=== PATIENT | male | born 1965 | race Hispanic/Latino ===

== ENCOUNTER 2019-07-19 07:48 | Inpatient (IN) | payer OTHER ==
[2019-07-19] MEDS ORDERED: NITROGLYCERIN 0.4 MG/TAB SL ONE (08:04)
[2019-07-19 08:16] LABS: Absolute Lymphocytes (CBC) 1.7 K/uL (0.7-4.9); Basophils % 0.4 % (0-1.3); Hematocrit 46.3 % (39.6-49.0); Lymphocytes % 15.4 % (15.3-44.8); MPV 8.4 fL (7.6-11.3); RBC Red Blood Cell Count 4.99 M/uL (4.33-5.43)
--- NOTE | 2019-07-19 08:26 | RAD REPORT ---
EXAM DESCRIPTION: RAD - Chest Single View - 07/19/2019 8:10 am CLINICAL HISTORY: Chest pain COMPARISON: July 2016 TECHNIQUE: AP portable chest image was obtained 0806 hours . FINDINGS: Lung volumes are low but clear. Interstitial pattern is similar or slightly less prominent than comparison. Trachea is midline. Heart and vasculature are normal. No measurable pleural effusio n and no pneumothorax. No acute bony abnormality seen. No acute aortic findings suspected. IMPRESSION: No acute cardiopulmonary process. No significant interval change.
[2019-07-19 08:29] LABS: ALT/SGPT 32 U/L (12-78); AST/SGOT 16 U/L (15-37); Albumin 3.8 g/dL (3.4-5.0); Alkaline Phosphatase 101 U/L (45-117); BUN Blood Urea Nitrogen 16 mg/dL (7-18); Bicarbonate 26 mmol/L (21-32); Bilirubin Direct < 0.1 mg/dL (0-0.2); Bilirubin Total 0.4 mg/dL (0.2-1.0); Glucose Level 91 mg/dL (74-106); Lipase 177 U/L (73-393); NT PRO-BNP 23 pg/mL (<125); Potassium 3.9 mmol/L (3.5-5.1); Protein, Total 7.7 g/dL (6.4-8.2); Sodium Level 142 mmol/L (136-145); Troponin (Emerg Dept Use Only) 0.04 ng/mL (0.0-0.045)
--- NOTE | 2019-07-19 09:13 | RAD REPORT ---
EXAM DESCRIPTION: CT - Angio Aorta For Dissection - 07/19/2019 8:52 am CLINICAL HISTORY: Hypertension, chest pain radiating to the back COMPARISON: None. TECHNIQUE: Dynamically enhanced 3 mm thick images of the chest, abdomen, and upper pelvis were obtai iker during administration of approximately 150mL Isovue 370 IV contrast. Sagittal and coronal reconst ruction images were generated using MIP and reviewed. Exam utilizes a protocol to evaluate entire cou rse of the aorta. All CT scans are performed using dose optimization technique as appropriate and may include automated exposure control or mA/KV adjustment according to patient size. FINDINGS: Aorta is normal in diameter with no dissection or other acute aortic findings. Reconstruct ion images show no significant findings. Pulmonary arteries are normal as well. No cardiomegaly, pericardial thickening or pericardial effusio n. Bilateral posterior gutter atelectasis changes are present. No acute lung parenchymal process. No ple ural thickening, pleural effusion or pneumothorax. No abnormal mediastinal or hilar mass or lymphadenopathy seen. No chest wall mass or abnormal axillar y lymphadenopathy. Celiac, SMA and renal arteries show no suspicious findings. Patient has a large inferior mesenteric a rtery that is normal in appearance. Solid abdominal viscera and bowel show no significant findings. No mass or abnormal lymphadenopathy. No free air, free fluid or inflammatory stranding. No urinary b ladder abnormality. Sigmoid diverticulosis is present without diverticulitis. Fat filled left inguinal hernia is present. There is a very small fat only umbilical hernia. No compression fracture or acute vertebral body finding. Prominent endplate spurring changes and brid ging ossification in the midthoracic spine. Advanced degenerative change involves the L5-S1 disc spac e with bony foraminal encroachment. IMPRESSION: Negative CT scan of the aorta. Atelectasis in both posterior lung bases. No acute CT chest finding seen. No acute findings in the abdomen or pelvis. Patient has prominent degenerative change in the midthoracic spine and at the L5-S1 disc level.
[2019-07-19] MEDS ORDERED: ASPIRIN 81 MG CHEWABLE TABLET ONE (09:35)
--- NOTE | 2019-07-19 09:38 | EDPHYS ---
Physician Documentation [facility] Name: Nimesh Silveira Jr Age: 53 yrs Sex: Male : 1965 Arrival Date: 07/19/2019 Time: 07:49 Bed 5 Private MD: Haris Cruz ED Physician Pepe Aleman HPI: 07/19 07:56 This 53 yrs old Male presents to ER via Unassigned with complaints of Chest rn Pain. 07:56 The patient or guardian reports chest pain that is located primarily in the substernal rn area. Onset: 1 hour(s) ago. The pain radiates to The chest pain is described as a heaviness, a pressure, squeezing. Duration: The patient or guardian reports a single episode, that is still ongoing. Modifying factors: The symptoms are alleviated by nothing. the symptoms are aggravated by nothing. Severity of pain: At its worst the pain was moderate in the emergency department the pain is unchanged. The patient has not experienced similar symptoms in the past. Reports at work, standing, began 1 hour ago with central chest tightness, radiates to back and back of neck, + nausea, not better or worse with anything, no trauma, no fever/cough/sob/abd pain. Reports had normal treadmill stress 3 years ago, doesn't take any meds. . Historical: - Allergies: 08:02 No Known Allergies; jl7 - Home Meds: 08:02 Omeprazole Oral [Active]; jl7 - PMHx: 08:02 acid reflux; jl7 - PSHx: 08:02 Appendectomy; Tonsillectomy; jl7 - Immunization history:: Adult Immunizations unknown. - Social history:: Smoking status: Patient uses tobacco products, smokes one-half pack cigarettes per day. - Family history:: not pertinent. - Ebola Screening: : No symptoms or risks identified at this time. - Hospitalizations: : No recent hospitalization is reported. ROS: 07:56 Constitutional: Negative for fever, chills, and weight loss, Eyes: Negative for injury, rn pain, redness, and discharge, Neck: Negative for injury, and swelling, Cardiovascular: Negative for palpitations, and edema, Respiratory: Negative for shortness of breath, cough, wheezing, and pleuritic chest pain, Abdomen/GI: Negative for abdominal pain, nausea, vomiting, diarrhea, and constipation, Back: Negative for injury MS/Extremity: Negative for injury and deformity, Skin: Negative for injury, rash, and discoloration, Neuro: Negative for headache, weakness, numbness, tingling, and seizure. Exam: 07:56 Constitutional: This is a well developed, well nourished patient who is awake, alert, rn and in no acute distress. Head/Face: Normocephalic, atraumatic. Eyes: Pupils equal round and reactive to light, extra-ocular motions intact. Lids and lashes normal. Conjunctiva and sclera are non-icteric and not injected. Cornea within normal limits. Periorbital areas with no swelling, redness, or edema. Neck: Trachea midline, no thyromegaly or masses palpated, and no cervical lymphadenopathy. Supple, full range of motion without nuchal rigidity, or vertebral point tenderness. No Meningismus. Cardiovascular: Regular rate and rhythm with a normal S1 and S2. No JVD. No pulse deficits. Respiratory: Lungs have equal breath sounds bilaterally, clear to auscultation. No increased work of breathing, no retractions or nasal flaring. Abdomen/GI: soft, non-tender MS/ Extremity: Pulses equal, no cyanosis. Neurovascular intact. Full, normal range of motion. Equal circumference. Neuro: Awake and alert, GCS 15, oriented to person, place, time, and situation. Cranial nerves II-XII grossly intact. Motor strength 5/5 in all extremities. Sensory grossly intact. 08:39 ECG was reviewed by the Attending Physician. rn Vital Signs: 08:02 BP 154 / 90 RA; Pulse 85; Resp 18 S; Pulse Ox 100% on R/A; Weight 80.74 kg (R); Height jl7 5 ft. 9 in. (175.26 cm) (R); Pain 8/10; 08:02 BP 152 / 91 LA; jl7 08:30 BP 127 / 83; Pulse 69; Resp 15; Pulse Ox 97% on 2 lpm NC; Pain 5/10; jl7 09:32 BP 134 / 90; Pulse 69; Resp 16 S; Temp 97.7(TE); Pulse Ox 99% on R/A; Pain 1/10; jl7 10:30 BP 130 / 79; Pulse 64; Resp 16 S; Pulse Ox 99% on R/A; jl7 08:02 Body Mass Index 26.29 (80.74 kg, 175.26 cm) [facility] MDM: 07:51 Patient medically screened. rn 09:32 Differential diagnosis: acute myocardial infarction, acute pericarditis, coronary rn artery disease cholecystitis, Cholelithiasis esophagitis, gastritis, gastroesophageal reflux disease (GERD), pericarditis, pleurisy, pneumothorax, stable angina, unstable angina. The patient was given aspirin in the Emergency Department. 09:34 Data reviewed: vital signs, nurses notes, lab test result(s), EKG, radiologic studies, rn CT scan, plain films, and as a result, I will admit patient. Counseling: I had a detailed discussion with the patient and/or guardian regarding: the historical points, exam findings, and any diagnostic results supporting the discharge/admit diagnosis, lab results, radiology results, the need for further work-up and treatment in the hospital. Response to treatment: the patient's symptoms have resolved after treatment, and as a result, I will admit patient. Admission orders: after a detailed discussion of the patient's condition and case, the admit orders are written by me. ED course: Pt with concerning story, no other etiology found, completely resolved with nitro, will admit for cardiac eval/stress test. . 09:35 ED course: Talked to patient about possible repeat troponin and outpt f/u, patient rn andrew, expressed concerns since not normal occurrence for him, patient requests to be admitted for further w/u. . 07/19 07:56 Order name: Basic Metabolic Panel; Complete Time: 08:33 rn 07/19 07:56 Order name: CBC with Diff; Complete Time: 08:33 rn 07/19 07:56 Order name: LFT's; Complete Time: 08:33 rn 07/19 07:56 Order name: NT PRO-BNP; Complete Time: 08:33 rn 07/19 07:56 Order name: Troponin (emerg Dept Use Only); Complete Time: 08:33 rn 07/19 07:56 Order name: Lipase; Complete Time: 08:33 rn 07/19 07:56 Order name: XRAY Chest (1 view); Complete Time: 08:33 rn 07/19 07:56 Order name: EKG; Complete Time: 07:58 rn 07/19 07:56 Order name: CT Aorta for Dissection; Complete Time: 09:14 rn 07/19 09:48 Order name: CONS Physician Consult EDSC 07/19 10:01 Order name: Occult Blood--Ancillary EDSC 07/19 07:56 Order name: Cardiac monitoring; Complete Time: 08:06 rn 07/19 07:56 Order name: EKG - Nurse/Tech; Complete Time: 08:14 rn 07/19 07:56 Order name: IV Saline Lock; Complete Time: 08: rn 07/19 07:56 Order name: Labs collected and sent; Complete Time: 08: rn 07/19 07:56 Order name: O2 Per Protocol; Complete Time: 08: rn 07/19 07:56 Order name: O2 Sat Monitoring; Complete Time: 08: rn EC:39 Rate is 75 beats/min. Rhythm is regular. QRS [place] is Normal. MT interval is normal. QRS rn interval is normal. QT interval is normal. No Q waves. T waves are Normal. No ST changes noted. Clinical impression: Normal ECG. Interpreted by me. Reviewed by me. Administered Medications: 08:08 Drug: Nitroglycerin 0.4 mg Route: Sublingual; jl7 08:30 Follow up: Response: No adverse reaction; Pain is decreased jl7 09:38 Drug: Aspirin Chewable Tablet 324 mg Route: PO; jl7 10:26 Follow up: Response: No adverse reaction jl7 Disposition: 07/19/19 09:35 Hospitalization ordered by Lj Brooks for Observation. Preliminary diagnosis is Chest pain, unspecified. - Bed requested for Telemetry/MedSurg (observation). - Status is Observation. jl7 - Condition is Stable. - Problem is new. - Symptoms have improved. UTI on Admission? No Signatures: Dispatcher [employer] [facility] Shiela Nunez RN Pepe Kirby MD MD rn Leal, Jahala, RN RN jl7 Corrections: (The following items were deleted from the chart) 09:37 09:35 Hospitalization Ordered by Pepe Aleman MD for Observation. Preliminary diagnosis rn is Chest pain, unspecified. Bed requested for Telemetry/MedSurg (observation). Status is Observation. Condition is Stable. Problem is new. Symptoms have improved. UTI on Admission? No. rn 10:18 09:37 07/19/2019 09:35 Hospitalization Ordered by Lj Brooks DO for Observation. dw Preliminary diagnosis is Chest pain, unspecified. Bed requested for Telemetry/MedSurg (observation). Status is Observation. Condition is Stable. Problem is new. Symptoms have improved. UTI on Admission? No. rn 10:54 10:18 07/19/2019 09:35 Hospitalization Ordered by Lj Brooks DO for Observation. jl7 Preliminary diagnosis is Chest pain, unspecified. Bed requested for Telemetry/MedSurg (observation). Status is Observation. Condition is Stable. Problem is new. Symptoms have improved. UTI on Admission? No. dw
--- NOTE | 2019-07-19 09:38 | ER ---
Nurse's Notes [facility] Name: Nimesh Silveira Jr Age: 53 yrs Sex: Male : 1965 Arrival Date: 07/19/2019 Time: 07:49 Bed 5 Private MD: Haris Cruz Diagnosis: Chest pain, unspecified Presentation: 07/19 08:00 Presenting complaint: Patient states: Chest pain started 1 hour ago, radiates to back jl7 and posterior neck. Transition of care: patient was not received from another setting of care. Onset of symptoms was July 19, 2019 at 07:00. Risk Assessment: Do you want to hurt yourself or someone else? Patient reports no desire to harm self or others. Initial Sepsis Screen: Does the patient meet any 2 criteria? No. Patient's initial sepsis screen is negative. Does the patient have a suspected source of infection? No. Patient's initial sepsis screen is negative. Care prior to arrival: None. 08:00 Method Of Arrival: Ambulatory jl7 08:00 Acuity: FRANCIA 2 jl7 Triage Assessment: 08:00 General: Appears in no apparent distress. uncomfortable, Behavior is calm, cooperative, jl7 appropriate for age. Pain: Complains of pain in chest Pain radiates to base of the skull and back Pain currently is 8 out of 10 on a pain scale. at worst was 12 out of 10 on a pain scale. Quality of pain is described as pressure, Pain began 1 hour ago. Is intermittent. EENT: No signs and/or symptoms were reported regarding the EENT system. Neuro: Level of Consciousness is awake, alert, obeys commands, Oriented to person, place, time, situation. Cardiovascular: Heart tones S1 S2 present Patient's skin is warm and dry. Chest pain is described as Pain is 8 out of 10 on a pain scale. quality is pressure, is located in chest wall radiates back neck began 1 hour prior to arrival episodes are intermittent. Respiratory: Airway is patent Respiratory effort is even, unlabored, Respiratory pattern is regular, symmetrical, Breath sounds are clear bilaterally. GI: No signs and/or symptoms were reported involving the gastrointestinal system. : No signs and/or symptoms were reported regarding the genitourinary system. Derm: Skin is pink, warm \T\ dry. Musculoskeletal: No signs and/or symptoms reported regarding the musculoskeletal system. Historical: - Allergies: 08:02 No Known Allergies; jl7 - Home Meds: 08:02 Omeprazole Oral [Active]; jl7 - PMHx: 08:02 acid reflux; jl7 - PSHx: 08:02 Appendectomy; Tonsillectomy; jl7 - Immunization history:: Adult Immunizations unknown. - Social history:: Smoking status: Patient uses tobacco products, smokes one-half pack cigarettes per day. - Family history:: not pertinent. - Ebola Screening: : No symptoms or risks identified at this time. - Hospitalizations: : No recent hospitalization is reported. Screenin:12 Abuse screen: Denies threats or abuse. Denies injuries from another. Nutritional jl7 screening: No deficits noted. Tuberculosis screening: No symptoms or risk factors identified. Fall Risk IV access (20 points). Total Redman Fall Scale indicates No Risk (0-24 pts). Assessment: 08:00 General: See triage assessment. jl7 08:30 Reassessment: Patient states feeling better. Patient states symptoms have improved. jl7 Pain: Pain currently is 5 out of 10 on a pain scale. 09:30 Reassessment: Patient appears in no apparent distress at this time. No changes from jl7 previously documented assessment. Patient and/or family updated on plan of care and expected duration. Pain level reassessed. Patient is alert, oriented x 3, equal unlabored respirations, skin warm/dry/pink. 10:30 Reassessment: Patient appears in no apparent distress at this time. Patient and/or jl7 family updated on plan of care and expected duration. Pain level reassessed. Patient is alert, oriented x 3, equal unlabored respirations, skin warm/dry/pink. Vital Signs: 08:02 BP 154 / 90 RA; Pulse 85; Resp 18 S; Pulse Ox 100% on R/A; Weight 80.74 kg (R); Height jl7 5 ft. 9 in. (175.26 cm) (R); Pain 8/10; 08:02 BP 152 / 91 LA; jl7 08:30 BP 127 / 83; Pulse 69; Resp 15; Pulse Ox 97% on 2 lpm NC; Pain 5/10; jl7 09:32 BP 134 / 90; Pulse 69; Resp 16 S; Temp 97.7(TE); Pulse Ox 99% on R/A; Pain 1/10; jl7 10:30 BP 130 / 79; Pulse 64; Resp 16 S; Pulse Ox 99% on R/A; jl7 08:02 Body Mass Index 26.29 (80.74 kg, 175.26 cm) 7 ED Course: 07:49 Patient arrived in ED. mr 07:49 Haris Cruz DO is Private Physician. mr 07:49 Mitzi Kelly RN is Primary Nurse. jl7 07:51 Pepe Aleman MD is Attending Physician. rn 08:01 Triage completed. jl7 08:02 Arm band placed on right wrist. jl7 08:04 Initial lab(s) drawn, by ri, sent to lab. Inserted saline lock: 20 gauge in left mh5 forearm, using aseptic technique. Blood collected. 08:05 Patient has correct armband on for positive identification. Placed in gown. Bed in low mh5 position. Call light in reach. Side rails up X 1. manager monitoring on. Pulse ox on. NIBP on. 08:06 Basic Metabolic Panel Sent. 5 08:06 CBC with Diff Sent. mh5 08:06 LFT's Sent. mh5 08:06 NT PRO-BNP Sent. 5 08:06 Troponin (emerg Dept Use Only) Sent. 5 08:12 Oxygen administration via nasal cannula \T\ 2L/min. jl7 08:13 XRAY Chest (1 view) In Process Unspecified. EDMS 08:53 CT Aorta for Dissection In Process Unspecified. EDMS 09:35 Pepe Aleman MD is Hospitalizing Provider. rn 09:37 Lj Brooks DO is Hospitalizing Provider. rn 10:41 No provider procedures requiring assistance completed. Patient admitted, IV remains in [facility] place. intact, No redness/swelling at site. Administered Medications: 08:08 Drug: Nitroglycerin 0.4 mg Route: Sublingual; jl7 08:30 Follow up: Response: No adverse reaction; Pain is decreased jl7 09:38 Drug: Aspirin Chewable Tablet 324 mg Route: PO; jl7 10:26 Follow up: Response: No adverse reaction [facility] Outcome: 09:35 Decision to Hospitalize by Provider. rn 10:41 Admitted to Tele accompanied by tech, family with patient, via wheelchair, room 209, [facility] with chart, Report called to Deborah 10:41 Condition: stable 10:41 Discharge instructions given to patient, family, Instructed on the need for admit, Demonstrated understanding of instructions. 10:54 Patient left the ED. jl7 Signatures: Dispatcher [employer] [facility] Zhu Terra AshPepe MD MD rn Martinez, Maria [facility] Mitzi Kelly RN RN jl7 Corrections: (The following items were deleted from the chart) 08:09 08:02 BP 154 / 90; Pulse 85bpm; Resp 18bpm; Spontaneous; Pulse Ox 100% RA; 80.74 kg jl7 Reported; Height 5 ft. 9 in. Reported; BMI: 26.2; Pain 8/10; jl7
--- NOTE | 2019-07-19 09:59 | EKG ---
Test Date: 2019-07-19 Test Time: 07:44:57 Director Mobile: JUANPABLO MEASUREMENT RESULTS: Intervals: Rate: 75 ID: [id number] QRSD: 100 QT: 358 QTc: 399 [place]: P: 49 ID: [id number] QRS: -26 T: 50 INTERPRETIVE STATEMENTS: Normal sinus rhythm with sinus arrhythmia Normal ECG Compared to ECG 10/15/2016 22:03:29 Incomplete right bundle-branch block no longer present Electronically Signed On 07-19-19 09:58:01 CDT by Arturo Mccann
--- NOTE | 2019-07-19 10:28 | P.HP ---
Certification for Inpatient Patient admitted to: Observation With expected LOS: <2 Midnights Patient will require the following post-hospital care: None Practitioner: I am a practitioner with admitting privileges, knowledge of patient current condition, hospital course, and medical plan of care. Services: Services provided to patient in accordance with Admission requirements found in Title 42 Section 412.3 of the Code of Federal Regulations <Jackie Riverashua - Last Filed: 07/19/19 10:23> Patient admitted to: Inpatient With expected LOS: >2 Midnights Patient will require the following post-hospital care: None Practitioner: I am a practitioner with admitting privileges, knowledge of patient current condition, hospital course, and medical plan of care. Services: Services provided to patient in accordance with Admission requirements found in Title 42 Section 412.3 of the Code of Federal Regulations <Lj Brooks - Last Filed: 07/19/19 17:23> Patient History Date of Service: 07/19/19 Primary Care Provider: Dr. Cruz Reason for admission: Chest Pain History of Present Illness: This is a 53 y/o M that present to ED for sudden onset chest pain that started at 05:45 this AM. Stated that the chest pain was substernal and pressure in nature with radiation to the left neck and back of shoulder. Pain upon ED arrival was 10 out of 10. Nitroglycerin and ASA were given in ED with almost complete relief of pain. First set of cardiac enzymes and ECG without acute finding. Patient otherwise hemodynamically stable. I was called to admit patient for chest pain r/o. Patient has significant family history and is a 1/2 ppd smoker. Other notable history is GERD but does not have diabetes or Hypercholesterolemia to his knowledge. Home medications list reviewed: Yes - Past Medical/Surgical History Has patient received pneumonia vaccine in the past: No Diabetic: No -: Tonsilitis -: Heartburn -: Tonsilectomy - Social History Alcohol use: No CD- Drugs: No Caffeine use: Yes <Gilbert Rivera - Last Filed: 07/19/19 10:23> Date of Service: 07/19/19 Primary Care Provider: Dr. Haris Cruz History of Present Illness: Positive family history includes mother with hypertension, father with previous HI and heart disease. Patient is a smoker. Home medications list reviewed: Yes - Past Medical/Surgical History Diabetic: No -: GERD -: Appendectomy Psychosocial/ Personal History: Patient is - Family History Father -: Heart disease Mother -: Heart disease, Hypertension - Social History Smoking Status: Heavy Tobacco smoker (>10 cigarettes/day) Counseled patient to stop smoking for: less than 10 minutes Smoking therapy provided: Yes Patient receptive to therapy: Yes Alcohol use: No CD- Drugs: No Caffeine use: Yes Place of Residence: Home <Lj Brooks - Last Filed: 07/19/19 17:23> Allergies No Known Allergies Allergy (Verified 07/19/19 10:55) Home Medications: Omeprazole 20 mg PO DAILY 07/19/19 Review of Systems General: Unremarkable Eyes: Unremarkable ENT: Unremarkable Respiratory: Unremarkable Cardiovascular: Chest Pain Gastrointestinal: Unremarkable Musculoskeletal: Unremarkable Integumentary: Unremarkable Neurological: Unremarkable Lymphatics: Unremarkable <Jackie Riverashua - Last Filed: 07/19/19 10:23> General: Unremarkable Eyes: Unremarkable ENT: Unremarkable Respiratory: Unremarkable Cardiovascular: Chest Pain, As per HPI Gastrointestinal: Unremarkable Genitourinary: Unremarkable Musculoskeletal: Unremarkable Integumentary: Unremarkable Neurological: Unremarkable Lymphatics: Unremarkable <Lj Brooks - Last Filed: 07/19/19 17:23> Physical Examination - Vital Signs Temperature: 98.0 F Blood Pressure: 134/80 Pulse: 65 Respirations: 14 Pulse Ox (%): 99 - Physical Exam General: Alert HEENT: Atraumatic Neck: Supple, 2+ carotid pulse no bruit, No LAD, Without JVD or thyroid abnormality Respiratory: Clear to auscultation bilaterally, Normal air movement Cardiovascular: No edema, Normal pulses, Regular rate/rhythm, Normal S1 S2, No gallops, No rubs, No murmurs Capillary refill: <2 Seconds Gastrointestinal: Normal bowel sounds, Soft and benign, Non-distended, No ascites, No tenderness, No masses, No rebound, No guarding Musculoskeletal: No clubbing, No swelling, No contractures, No erythema, No tenderness, No warmth Integumentary: No rashes, No breakdown, No significant lesion, No tenderness/ swelling, No erythema, No warmth, No cyanosis Neurological: Normal gait, Normal speech, Normal strength at 5/5 x4 extr, Normal tone, Sensation intact, Cranial nerves 3-12 intact, Normal reflexes 2+, Normal affect Lymphatics: No axilla or inguinal lymphadenopathy - Studies Laboratory Data (last 24 hrs) 07/19/19 08:00: WBC 11.1 H, Hgb 15.6, Hct 46.3, Plt Count 250 07/19/19 08:00: Sodium 142, Potassium 3.9, BUN 16, Creatinine 0.88, Glucose 91, Total Bilirubin 0.4, AST 16, ALT 32, Alkaline Phosphatase 101, Lipase 177 <Gilbert Rivera - Last Filed: 07/19/19 10:23> - Physical Exam General: Alert, In no apparent distress, Oriented x3, Cooperative HEENT: Atraumatic, Normocephalic, Mucous membr. moist/pink Neck: Supple Respiratory: Clear to auscultation bilaterally, Normal air movement Cardiovascular: Normal pulses, Regular rate/rhythm Gastrointestinal: Normal bowel sounds, Soft and benign, Non-distended, No ascites, No tenderness, No masses, No rebound, No guarding Musculoskeletal: No contractures, No erythema, No tenderness, No warmth Integumentary: No tenderness/swelling, No erythema, No warmth, No cyanosis Neurological: Normal speech, Normal strength at 5/5 x4 extr, Normal tone, Normal affect - Studies Laboratory Data (last 24 hrs) 07/19/19 08:00: WBC 11.1 H, Hgb 15.6, Hct 46.3, Plt Count 250 07/19/19 08:00: Sodium 142, Potassium 3.9, BUN 16, Creatinine 0.88, Glucose 91, Total Bilirubin 0.4, AST 16, ALT 32, Alkaline Phosphatase 101, Lipase 177 <Lj Brooks - Last Filed: 07/19/19 17:23> Assessment and Plan - Problems (Diagnosis) (1) Chest pain Current Visit: Yes Status: Acute Qualifiers: Chest pain type: unspecified Qualified Code(s): R07.9 - Chest pain, unspecified (2) GERD (gastroesophageal reflux disease) Current Visit: Yes Status: Chronic Qualifiers: Esophagitis presence: without esophagitis Qualified Code(s): K21.9 - Gastro -esophageal reflux disease without esophagitis - Plan Patient will be admitted for Observation Patient will have serial Troponin x2 drawn Cholesterol and A1C will be assessed Cardiology Consulted and will see patient. Will decide if further intervention is necessary Discharge Plan: Home Plan to discharge in: 24 Hours - Advance Directives Does patient have a Living Will: No Does patient have a Durable POA for Healthcare: No - Code Status/Comfort Care Code Status Assessed: Yes Code Status: Full Code Critical Care: No Time Spent Managing Pts Care (In Minutes): 30 <Gilbert Rivera - Last Filed: 07/19/19 10:23> - Plan Impression: Chest pain now with elevated troponin likely non ST wave HI suspect underlying CAD Elevated blood pressure suspect hypertension GERD Tobacco abuse Plan: Chest pain now with elevated troponin likely non ST wave HI suspect underlying CAD: Patient admitted for chest pain. 2nd set of troponin was elevated. Suspect non ST wave HI. Will keep the patient NPO after midnight as patient will likely require heart catheterization to further evaluate. Will start Lovenox at 1 milligram/kilogram subcu twice daily. Will continue with aspirin, Lipitor, and metoprolol. Cardiology has been consulted. Await further recommendations. Echocardiogram to be obtained. Will reassess tomorrow. Elevated blood pressure suspect hypertension: Blood pressures initially elevated. Will continue with metoprolol. Will monitor and adjust medication appropriately. GERD: Continue with Protonix. Tobacco abuse: Will provide nicotine patch. Tobacco cessation education provided. Discharge Plan: Home Plan to discharge in: 24 Hours (to 48 hours) - Code Status/Comfort Care Code Status Assessed: Yes (Patient is full code) Time Spent Managing Pts Care (In Minutes): 55 <Lj Brooks - Last Filed: 07/19/19 17:23>
[2019-07-19] MEDS ORDERED: ACETAMINOPHEN 500 MG TAB PO PRN (10:58)
[2019-07-19] MEDS ORDERED: NITROGLYCERIN 0.4 MG/TAB SL PRN (10:58)
[2019-07-19] MEDS ORDERED: ONDANSETRON 4 MG/2 ML VIAL IV PRN (10:58)
[2019-07-19] MEDS ORDERED: MORPHINE 2 MG/ML SYR IV PRN (10:58)
[2019-07-19 11:14] VITALS: BMI 26.2
--- NOTE | 2019-07-19 13:46 | CON ---
This is a 53-year-old man. History Of Present Illness: Mr. Silveira had chest pain today, it lasted for about an hour. It starte d about an hour after he had awakened and it occurred while he was at work. The health facilities at work transferred him to the ER. Since being here, EKGs and enzymes were normal. His chest pain has resolved. The pain is left pectoral. Since being here, he has had an EKG that is normal. Plain ch est x-ray that is normal. CT angiogram of the chest showing no evidence of dissection or pulmonary e mbolus. He has prominent degenerative changes in the spine and at the L5-S1 disk level. No compress ion fractures. His electrocardiogram shows everything is normal, even there was sinus arrhythmia. Laboratory Data: Reveals a troponin of 0.04. N-terminal proBNP is 23, blood sugar 91. Physical Examination: General: He is alert, oriented, pleasant, not in distress, not obese, rather abrupt in his answers. He seemed to be unhappy in some way that he is in the emergency room. He was cooperative. Lungs: Clear. No carotid bruit. Abdomen: No evidence of abdominal aortic aneurysm. Cardiac: Exam normal. Extremities: Normal pulses. No cyanosis, clubbing, or edema. Impression: This is probably noncardiac pain. If his serial enzymes are normal, I believe he could be discharged and do an outpatient stress test. He had a stress test roughly a year ago that was nor mal. He is a 10 cigarettes per day smoker and he should be given the tobacco cessation program and encoura ged to quit. FIDENCIO/VIPIN Voice ID: [id number] Report ID: [id number]
[2019-07-19] MEDS: METOPROLOL TAR 25 MG TAB PO SCH (17:47)
[2019-07-19] MEDS: ENOXAPARIN 80 MG/0.8 ML SQ SCH (20:01)
[2019-07-19] MEDS ORDERED: ATORVASTATIN 40 MG TAB PO SCH (21:00)
[2019-07-19 21:24] LABS: Barbiturates NEGATIVE (NEGATIVE); Benzodiazepines NEGATIVE (NEGATIVE); Cocaine NEGATIVE (NEGATIVE); METHAMPHETAM NEGATIVE (NEGATIVE); Methadone NEGATIVE (NEGATIVE); Opiates NEGATIVE (NEGATIVE); Phencyclidine NEGATIVE (NEGATIVE); THC Cannibis NEGATIVE (NEGATIVE)
[2019-07-20] MEDS: PANTOPRAZOLE 40MG TABLET PO SCH (06:09)
[2019-07-20] MEDS: METOPROLOL TAR 25 MG TAB PO SCH ×2 (06:09→17:58)
[2019-07-20 06:12] LABS: Absolute Lymphocytes (CBC) 2.7 K/uL (0.7-4.9); Basophils % 0.6 % (0-1.3); Hematocrit 45.3 % (39.6-49.0); Lymphocytes % 25.6 % (15.3-44.8); MPV 8.3 fL (7.6-11.3); RBC Red Blood Cell Count 4.85 M/uL (4.33-5.43)
[2019-07-20 06:31] LABS: Potassium 4.3 mmol/L (3.5-5.1)
[2019-07-20] MEDS: ENOXAPARIN 80 MG/0.8 ML SQ SCH (08:39)
[2019-07-20] MEDS: NICOTINE 21 MG/PAT TD SCH (08:40)
[2019-07-20] MEDS ORDERED: ASPIRIN EC 81 MG TAB PO SCH (09:00)
[2019-07-20] MEDS ORDERED: HEPA 1000U/500MLS 1,000 UNIT/500 ML BAG IV ONE (09:03)
[2019-07-20] MEDS ORDERED: NA CHLORIDE 0.9% 50 ML ONE (09:41)
[2019-07-20] MEDS ORDERED: MIDAZOLAM HCL 2 MG/2 ML INJ ONE (09:41)
[2019-07-20] MEDS ORDERED: FENTANYL CITR 100 MCG/2 ML ONE (09:41)
[2019-07-20] MEDS ORDERED: ATROPINE SULF 1 MG/10 ML SYR IV ONE (09:41)
[2019-07-20] MEDS ORDERED: NA CHLORIDE 0.9% 500 ML ONE (09:41)
[2019-07-20] MEDS ORDERED: PRASUGREL (EFFIENT) 10 MG TAB ONE (11:05)
--- NOTE | 2019-07-20 11:50 | OP ---
Date of Procedure: 07/20/2019 Surgeon: Rhys Nixon MD Sales Agent [employer] Service: Briseida Gordon. Procedure: Left heart catheterization, selective coronary arteriogram, primary stent of the proximal mid and distal LAD. Indications: Zvi-[id number]-[id number] myocardial infarction. Description Of Procedure: Mr. Silveira is 53. No previous past medical history. He came in with ches t pain, atypical, but had positive troponin. He was brought to the manager cath lab as an inpatient today. Prepped and draped in the routine sterile fashion. A 6-St Helenian sheath was used to cannulate the right common femoral artery. Angio-Seal was used to close the case. 6-St Helenian Gil catheters, right an d left, were used to cannulate the RCA and the left main respectively. The RCA was normal. Circumfl ex system had some diffuse plaquing. The LAD had a 70% proximal, 80% mid, and about a 90% distal katie nosis. An XB 3.5 with side-hole guide was used to cannulate the left main. A Opal wire 0.14 extra length was used to cross the lesion successfully. I used 3 stents for the distal. We used a 2.5 x 12 for the mid. We used a 2.5 x 12 Synergy, and for the proximal, I used a 3.0 x 16 Synergy stent at 14 atmospheres each, 0% residual, excellent results. Patient tolerated the procedure well. There w ere no complications. Blood Loss: 5 cc. Anesthesia: Total conscious sedation was 45 minutes. Final Diagnoses: Coronary artery disease status post acute emu-[id number] myocardial infarction, s tatus post successful primary stenting of the proximal mid and distal LAD. Patient received Angiomax , Effient, and aspirin during the procedure. He will stay overnight. Tomorrow morning, he will go home on aspirin, Lipitor, Plavix, and beta federico. NB/MODL Voice ID: [id number] Report ID: [id number]
--- NOTE | 2019-07-20 12:20 | EKG ---
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
[2019-07-20] MEDS ORDERED: ZOLPIDEM TARTRATE 5 MG TABLET PO PRN (12:48)
[2019-07-20] MEDS ORDERED: MORPHINE 4 MG/ML SYR IV PRN (12:50)
[2019-07-20] MEDS ORDERED: ACETAMINOPHEN 325 MG TABLET PO PRN (13:00)
[2019-07-20] MEDS: NA CHLORIDE 0.9% 1,000 ML IV SCH (13:38)
--- NOTE | 2019-07-20 15:24 | P.PN ---
Subjective Date of Service: 07/20/19 Primary Care Provider: Dr. Haris Cruz Chief Complaint: Chest Pain Subjective: Other (Patient feeling better today. Heart catheterization performed.) Physical Examination - Vital Signs Temperature: 97 F Blood Pressure: 119/63 Pulse: 69 Respirations: 18 Pulse Ox (%): 98 - Physical Exam General: Alert, In no apparent distress, Oriented x3, Cooperative HEENT: Atraumatic Neck: Supple Respiratory: Clear to auscultation bilaterally, Normal air movement Cardiovascular: Normal pulses, Regular rate/rhythm Gastrointestinal: Normal bowel sounds, Soft and benign, Non-distended, No masses , No rebound, No guarding - Studies Medications List Reviewed: Yes Assessment & Plan Discharge Plan: Home Plan to discharge in: 24 Hours Physician Review Additional Text: Impression: Chest pain secondary to non ST wave ID status post heart catheterization showing CAD with primary stenting of proximal mid and distal LAD Hypertension Hyperlipidemia GERD Tobacco abuse Plan: Chest pain secondary to non ST wave ID status post heart catheterization showing CAD with primary stenting of proximal, mid, and distal LAD: Case discussed with cardiology. Patient had significant CAD. 70% stenosis to the proximal LAD, 80% to the mid LAD and 90% to the distal LAD. Patient had successful primary stenting of the proximal, mid and distal LAD. Patient stable this time. Will continue with aspirin, Lipitor, Plavix and beta federico therapy. Will continue monitor the patient closely. Anticipate discharge tomorrow with clinical improvement and cleared by cardiology. Patient will need medical therapy and follow up with Cardiology closely. Hypertension: Continue with metoprolol. Hyperlipidemia: Continue with Lipitor 80 mg daily. GERD: Continue with medication. Tobacco abuse: Continue to address lifestyle modification education. Will provide nicotine patch. Encourage cessation due to CAD findings. Time Spent Managing Pts Care (In Minutes): 55
[2019-07-20] MEDS ORDERED: ATORVASTATIN 80 MG TAB PO SCH (21:00)
[2019-07-21] MEDS: NA CHLORIDE 0.9% 1,000 ML IV SCH (03:24)
[2019-07-21] MEDS: METOPROLOL TAR 25 MG TAB PO SCH (05:25)
[2019-07-21] MEDS: PANTOPRAZOLE 40MG TABLET PO SCH (05:26)
[2019-07-21 06:05] LABS: Absolute Lymphocytes (CBC) 2.4 K/uL (0.7-4.9); Basophils % 0.3 % (0-1.3); Lymphocytes % 20.1 % (15.3-44.8); MPV 7.9 fL (7.6-11.3); RBC Red Blood Cell Count 4.74 M/uL (4.33-5.43)
[2019-07-21 06:22] LABS: BUN Blood Urea Nitrogen 18 mg/dL (7-18); Bicarbonate 28 mmol/L (21-32); Glucose Level 100 mg/dL (74-106); HDL Cholesterol 28 mg/dL (40-60); LDL Cholesterol, Calculated 36 (<130); Potassium 4.4 mmol/L (3.5-5.1); Sodium Level 141 mmol/L (136-145)
[2019-07-21] MEDS: NICOTINE 21 MG/PAT TD SCH (08:04)
--- NOTE | 2019-07-21 08:30 | P.DS ---
Admission Date: 07/21/19 Discharge Date: 07/21/19 Primary Care Provider: Dr. Haris Cruz Disposition: ROUTINE DISCHARGE Discharge Condition: GOOD Reason for Admission: Chest Pain Consultations: Cardiology-Dr. Nixon Procedures: CT scan: FINDINGS: Aorta is normal in diameter with no dissection or other acute aortic findings. Reconstruction images show no significant findings. Pulmonary arteries are normal as well. No cardiomegaly, pericardial thickening or pericardial effusion. Bilateral posterior gutter atelectasis changes are present. No acute lung parenchymal process. No pleural thickening, pleural effusion or pneumothorax. No abnormal mediastinal or hilar mass or lymphadenopathy seen. No chest wall mass or abnormal axillary lymphadenopathy. Celiac, SMA and renal arteries show no suspicious findings. Patient has a large inferior mesenteric artery that is normal in appearance. Solid abdominal viscera and bowel show no significant findings. No mass or abnormal lymphadenopathy. No free air, free fluid or inflammatory stranding. No urinary bladder abnormality. Sigmoid diverticulosis is present without diverticulitis. Fat filled left inguinal hernia is present. There is a very small fat only umbilical hernia. No compression fracture or acute vertebral body finding. Prominent endplate spurring changes and bridging ossification in the midthoracic spine. Advanced degenerative change involves the L5-S1 disc space with bony foraminal encroachment. IMPRESSION: Negative CT scan of the aorta. Atelectasis in both posterior lung bases. No acute CT chest finding seen. No acute findings in the abdomen or pelvis. Patient has prominent degenerative change in the midthoracic spine and at the L5 -S1 disc level Heart Catheterization: Date of Procedure: 07/20/2019 Surgeon: Rhys Nixon MD Procedure: Left heart catheterization, selective coronary arteriogram, primary stent of the proximal mid and distal LAD. Indications: [id number]-[id number] myocardial infarction. Description Of Procedure: The RCA was normal. Circumflex system had some diffuse plaquing. The LAD had a 70% proximal, 80% mid, and about a 90% distal stenosis. 3 stents used for the proximal, mid and distal. Patient tolerated the procedure well. There were no complications. Blood Loss: 5 cc. Anesthesia: Total conscious sedation was 45 minutes. Final Diagnoses: Coronary artery disease status post acute zlt-RK-[id number] myocardial infarction, status post successful primary stenting of the proximal mid and distal LAD. Medical Problem List: Chest pain secondary to non ST wave IA status post heart catheterization showing CAD with primary stenting of proximal, mid, and distal LAD Hypertension Hyperlipidemia GERD Tobacco abuse Brief History of Present Illness: Positive family history includes mother with hypertension, father with previous IA and heart disease. Patient is a smoker. Hospital Course: Patient presented with chest pain. Patient was admitted for further evaluation. Patient eventually had abnormal troponins indicating non ST wave IA. Patient was seen and evaluated by Cardiology. Cardiology intervention was required. Patient had heart catheterization showing LAD stenosis with 70% proximal, 80% mid and 90% distal. Patient had successful stent placement of proximal, mid and distal LAD. Patient tolerated procedure well. Patient placed on medication. He was not taking any medication prior to coming in. At discharge he is without any significant chest pain shortness of breath. At discharge patient will continue with aspirin 81 mg daily, Lipitor 80 mg daily, Plavix 75 mg daily, and metoprolol 25 mg 1 pill twice daily. Recommendation is for the patient to follow up with cardiology in 1-2 weeks to follow up this hospitalization and to continue his care. Education on CAD, hypertension and hyperlipidemia will be provided. Tobacco cessation recommended. Patient now with hypertension. Blood pressure improved with medication. At discharge he will continue with metoprolol 25 mg 1 pill twice daily. Recommendation is to maintain blood pressures less 150/80. Further adjustment can be done by his PCP or cardiology. Patient with hyperlipidemia. Patient started on medication. At discharge he will continue with Lipitor 80 mg daily and fish oil 2 g twice daily. Recommend to recheck fasting lipid panel in 2-4 weeks to monitor his progress. Further adjustment may be required. Patient with underlying GERD. Patient may continue with his medication- Prilosec 20 mg daily. Patient with tobacco abuse. Tobacco cessation addressed in detail. Education provided. Patient will be given nicotine patch to be used to help with cessation. Vital Signs/Physical Exam: Temp Pulse Resp BP Pulse Ox 97.0 F 76 14 140/82 97 07/21/19 04:00 07/21/19 05:25 07/21/19 04:00 07/21/19 05:25 07/21/19 04:00 General: Alert, In no apparent distress, Oriented x3, Cooperative HEENT: Atraumatic Neck: Supple Respiratory: Clear to auscultation bilaterally, Normal air movement Cardiovascular: Normal pulses, Regular rate/rhythm Gastrointestinal: Normal bowel sounds, Soft and benign, Non-distended, No tenderness, No masses, No rebound, No guarding Musculoskeletal: No erythema, No tenderness, No warmth Integumentary: No tenderness/swelling, No erythema, No warmth, No cyanosis Neurological: Normal speech, Normal strength at 5/5 x4 extr, Normal tone, Normal affect Laboratory Data at Discharge: WBC 11.8 K/uL (4.3-10.9) H 07/21/19 05:43 Hgb 15.2 g/dL (13.6-17.9) 07/21/19 05:43 Hct 44.0 % (39.6-49.0) 07/21/19 05:43 Plt Count 249 K/uL (152-406) 07/21/19 05:43 Sodium 141 mmol/L (136-145) 07/21/19 05:43 Potassium 4.4 mmol/L (3.5-5.1) 07/21/19 05:43 BUN 18 mg/dL (7-18) 07/21/19 05:43 Creatinine 0.85 mg/dL (0.55-1.3) 07/21/19 05:43 Glucose 100 mg/dL (74-106) 07/21/19 05:43 Total Bilirubin 0.4 mg/dL (0.2-1.0) 07/19/19 08:00 AST 16 U/L (15-37) 07/19/19 08:00 ALT 32 U/L (12-78) 07/19/19 08:00 Alkaline Phosphatase 101 U/L (45-117) 07/19/19 08:00 Troponin I 1.51 ng/mL (0.0-0.045) H* 07/20/19 05:35 Triglycerides 400 mg/dL (<150) H 07/21/19 05:43 Cholesterol 144 mg/dL (<200) 07/21/19 05:43 HDL Cholesterol 28 mg/dL (40-60) L 07/21/19 05:43 Cholesterol/HDL Ratio 5.14 07/21/19 05:43 Lipase 177 U/L (73-393) 07/19/19 08:00 Home Medications: Omeprazole 20 mg PO DAILY 07/19/19 Aspirin Chewable [Aspirin Chewable*] 81 mg PO DAILY #90 tab.chew 07/21/19 Atorvastatin Calcium [Lipitor] 80 mg PO BEDTIME #30 tab 07/21/19 Clopidogrel Bisulfate [Plavix*] 75 mg PO DAILY #30 tablet 07/21/19 Docosahexanoic AC/Epa [Fish Oil 1,000 MG CAP] 2,000 mg PO BID #120 cap 07/21/19 Metoprolol Tartrate [Lopressor*] 25 mg PO BID #60 tab 07/21/19 Nicotine [Nicoderm*] 21 mg TD DAILY #30 patch.td24 07/21/19 New Medications: Aspirin Chewable [Aspirin Chewable*] 81 mg PO DAILY #90 tab.chew Atorvastatin Calcium [Lipitor] 80 mg PO BEDTIME #30 tab Clopidogrel Bisulfate [Plavix*] 75 mg PO DAILY #30 tablet Docosahexanoic AC/Epa [Fish Oil 1,000 MG CAP] 2,000 mg PO BID #120 cap Metoprolol Tartrate [Lopressor*] 25 mg PO BID #60 tab Nicotine [Nicoderm*] 21 mg TD DAILY #30 patch.td24 Patient Discharge Instructions: 1. Recommend follow up with PCP in 1-2 weeks to follow up this hospitalization. 2. Patient presented with chest pain. Patient was admitted for further evaluation. Patient eventually had abnormal troponins indicating non ST wave IA. Patient was seen and evaluated by Cardiology. Cardiology intervention was required. Patient had heart catheterization showing LAD stenosis with 70% proximal, 80% mid and 90% distal. Patient had successful stent placement of proximal, mid and distal LAD. Patient tolerated procedure well. Patient placed on medication. He was not taking any medication prior to coming in. At discharge he is without any significant chest pain shortness of breath. At discharge patient will continue with aspirin 81 mg daily, Lipitor 80 mg daily, Plavix 75 mg daily, and metoprolol 25 mg 1 pill twice daily. Recommendation is for the patient to follow up with cardiology in 1-2 weeks to follow up this hospitalization and to continue his care. Education on CAD, hypertension and hyperlipidemia will be provided. Tobacco cessation recommended. 3. Patient now with hypertension. Blood pressure improved with medication. At discharge he will continue with metoprolol 25 mg 1 pill twice daily. Recommendation is to maintain blood pressures less 150/80. Further adjustment can be done by his PCP or cardiology. 4. Patient with hyperlipidemia. Patient started on medication. At discharge he will continue with Lipitor 80 mg daily and fish oil 2 g twice daily. Recommend to recheck fasting lipid panel in 2-4 weeks to monitor his progress. Further adjustment may be required. 5. Patient with underlying GERD. Patient may continue with his medication-Prilosec 20 mg daily. 6. Patient with tobacco abuse. Tobacco cessation addressed in detail. Education provided. Patient will be given nicotine patch to be used to help with cessation. Diet: AHA Activity: Ad jacquelyn Followup: Rhys Nixon MD [ACTIVE - CAN ADMIT] - (Follow up in 2 weeks) Time spent managing pt's care (in minutes): 55
[2019-07-21 08:42] VITALS: O2SAT 94
[2019-07-21] MEDS ORDERED: CLOPIDOGREL 75 MG TABLET PO SCH (09:00)
[2019-07-21] MEDS ORDERED: ASPIRIN 81 MG CHEWABLE TABLET PO SCH (09:00)
--- NOTE | 2019-07-21 09:39 | EKG ---
Test Date: 2019-07-21 Test Time: 07:43:08 Flat Sheet Maker: JANY MEASUREMENT RESULTS: Intervals: Rate: 65 HI: 186 QRSD: 100 QT: 358 QTc: 372 Startex: P: 47 HI: 186 QRS: -29 T: 55 INTERPRETIVE STATEMENTS: Normal sinus rhythm Possible Anterior infarct, age undetermined Abnormal ECG Compared to ECG 07/20/2019 07:28:38 Myocardial infarct finding now present ST (T wave) deviation no longer present Electronically Signed On 07-21-19 09:38:31 CDT by Arturo Mccann
[2019-07-21 10:16] VITALS: BP 111/72; TEMP 98.4
--- NOTE | 2019-07-22 23:07 | PN ---
Date of Progress Note: 07/21/2019 Mr. Silveira was admitted on 07/19/2019 with chest pain, positive troponin. On 07/20/2019, he underwen t stent of his distal LAD, middle LAD, and proximal LAD successfully with 0% residual. Overnight on 07/21/2019, his groin was intact. No hematoma. There were no telemetry changes and no arrhythmias. He had no chest pain. His chest sounded clear. Patient wanted to go home. A prescription for aspi rin, Plavix, Toprol, and Lipitor was given to him. He can go home, resume normal activities without heavy lifting and come see me in the office in 2 weeks. The case was discussed with Dr. Brooks. GRZEGORZ/VIPIN Voice ID: [id number] Report ID: [id number]
== END 2019-07-21 09:34 | disposition home or self-care (01) | DRG 247 ==
LOC: ER 07:48 → ERHOLD 09:45 → 2ND 10:38 → OBSVTOIN 07-21 08:08
PROVIDERS: ADMIT Family Medicine; ATTEND Family Medicine
PROC: 4A023N7 Measurement of Cardiac Sampling and Pressure, Left Heart, Percutaneous Approach (ICD-10-PCS; principal; 2019-07-20)
PROC: 027036Z Dilation of Coronary Artery, One Artery with Three Drug-eluting Intraluminal Devices, Percutaneous Approach (ICD-10-PCS; 2019-07-20)
PROC: B201YZZ Plain Radiography of Multiple Coronary Arteries using Other Contrast (ICD-10-PCS; 2019-07-20)
PROC: B205YZZ Plain Radiography of Left Heart using Other Contrast (ICD-10-PCS; 2019-07-20)
DX: I21.4 Non-ST elevation (NSTEMI) myocardial infarction (principal); I25.10 Atherosclerotic heart disease of native coronary artery without angina pectoris; I11.9 Hypertensive heart disease without heart failure; E78.5 Hyperlipidemia, unspecified; K21.9 Gastro-esophageal reflux disease without esophagitis; F17.210 Nicotine dependence, cigarettes, uncomplicated
CPT/HCPCS: 36415; 71045; 71275; 74175; 80048; 80061; 80076; 80307; 82272; 83036; 83690; 83880; 84484; 85025; 85347; 92928; 93005; 93454; 99285; C1725; C1760; C1877; C1893; G0378; J0583; J1650; J2250; J3010; J7030; Q9967

== ENCOUNTER 2019-11-06 14:36 | Emergency (ER) | payer OTHER ==
[2019-11-06] MEDS ORDERED: TETANUS & DIPHTHERIA TOX,ADULT 0.5 ML VIAL ONE (14:59)
[2019-11-06] MEDS ORDERED: HYDROCODONE/APAP 7.5/325 MG TAB ONE (15:14)
--- NOTE | 2019-11-06 17:16 | ER ---
Nurse's Notes [facility] Name: Nimesh Silveira Jr Age: 54 yrs Sex: Male : 1965 Arrival Date: 11/06/2019 Time: 14:39 Bed 8 Private MD: Haris Cruz Diagnosis: Other slipping, tripping and stumbling and falls;Multiple contusions and abrsaions to extremities Presentation: 11/06 14:42 Presenting complaint: Patient states: Fell from 6ft ladder, denies LOC, injuries to hedy ph shins, L forearm and L back, does take PLavix. Transition of care: patient was not received from another setting of care. Onset of symptoms was November 06, 2019. Risk Assessment: Do you want to hurt yourself or someone else? Patient reports no desire to harm self or others. Initial Sepsis Screen: Does the patient meet any 2 criteria? No. Patient's initial sepsis screen is negative. Does the patient have a suspected source of infection? No. Patient's initial sepsis screen is negative. 14:42 Method Of Arrival: Ambulatory ph 14:42 Acuity: FRANCIA 2 ph 14:45 Care prior to arrival: None. Mechanism of Injury: Fall from ladder. Trauma event hb details: Injury occurred in the [facility], Injury occurred: at home. Injury occurred: November 06, 2019. Trauma Activation: Alert Physician: ED Physician; Name: ; Notified At: ; Arrived At: Physician: General Surgeon; Name: ; Notified At: ; Arrived At: Physician: Radiology; Name: ; Notified At: ; Arrived At: Physician: Respiratory; Name: ; Notified At: ; Arrived At: Physician: Lab; Name: ; Notified At: ; Arrived At: Historical: - Allergies: 14:44 No Known Allergies; ph - Home Meds: 16:06 Omeprazole Oral [Active]; hb - PMHx: 14:44 acid reflux; ph - PSHx: 14:44 Appendectomy; Tonsillectomy; ph - Immunization history: Last tetanus immunization: unknown. - Social history:: Smoking status: Patient/guardian denies using tobacco. - Ebola Screening: : No symptoms or risks identified at this time. Screenin:45 Abuse screen: Denies threats or abuse. Denies injuries from another. Tuberculosis hb screening: No symptoms or risk factors identified. 15:10 Nutritional screening: No deficits noted. Fall Risk None identified. hb Primary Survey: 14:45 NO uncontrolled hemorrhage observed. NO uncontrolled hemorrhage observed. A: The hb patient is alert. Airway: patent, No supplemental oxygen in use on arrival. Oral cavity: clear. Breathing/Chest: Respiratory pattern: regular, Respiratory effort: spontaneous, unlabored, Chest inspection: symmetrical rise and fall of the chest. Circulation: Skin color: pink, Skin temperature: warm, dry. Disability Alert. Exposure/Environment: All clothing and personal items were removed. There is no evidence of uncontrolled external bleeding. Obvious injury(ies) are noted at this time: abrasions noted to bilateral lower legs, left forearm, left mid back. 15:45 Reassessment Airway Airway Patent Breathing/Chest Respiratory pattern Regular Breath hb sounds Clear Chest inspection Symmetrical Circulation Color [place] Temperature Warm Dry Disability Alert. 16:45 Reassessment Airway Airway Patent Breathing/Chest Respiratory pattern Regular Chest hb inspection Symmetrical Circulation Color [place] Disability Alert. Secondary Survey: 14:45 HEENT: No deficits noted. Gastrointestinal: No deficits noted. : No deficits noted. hb No signs and/or symptoms were reported regarding the genitourinary system. Musculoskeletal: No signs and/or symptoms reported regarding the musculoskeletal system. Injury Description: abrasions noted to bilateral lower legs, left mid back, left forearm. Assessment: 15:09 General: Appears in no apparent distress. Behavior is calm, cooperative. Pain: Pain hb currently is 5 out of 10 on a pain scale. Neuro: Level of Consciousness is awake, alert, obeys commands, Oriented to person, place, time, situation. EENT: No signs and/or symptoms were reported regarding the EENT system. Cardiovascular: Capillary refill < 3 seconds Patient's skin is warm and dry. Respiratory: Airway is patent Respiratory effort is even, unlabored, Respiratory pattern is regular, symmetrical, Breath sounds are clear bilaterally. GI: No signs and/or symptoms were reported involving the gastrointestinal system. : No signs and/or symptoms were reported regarding the genitourinary system. Derm: Skin is pink, warm \T\ dry. Musculoskeletal: No signs and/or symptoms reported regarding the musculoskeletal system. Injury Description: abrasions noted to bilateral lower legs, left forearm, left mid back. 16:02 Reassessment: Patient appears in no apparent distress at this time. Patient and/or hb family updated on plan of care and expected duration. Pain level reassessed. Patient is alert, oriented x 3, equal unlabored respirations, skin warm/dry/pink. 16:45 Reassessment: Patient appears in no apparent distress at this time. Patient and/or hb family updated on plan of care and expected duration. Pain level reassessed. Patient is alert, oriented x 3, equal unlabored respirations, skin warm/dry/pink. Vital Signs: 14:43 BP 115 / 81; Pulse 103; Resp 18; Temp 97.9; Pulse Ox 95% on R/A; Weight 84.82 kg; ph Height 5 ft. 9 in. (175.26 cm); 15:45 BP 132 / 70; Pulse 88; Resp 15; Pulse Ox 100% on R/A; Pain 3/10; hb 16:45 BP 136 / 76; Pulse 85; Resp 16; Pulse Ox 100% on R/A; Pain 2/10; hb 14:43 Body Mass Index 27.61 (84.82 kg, 175.26 cm) ph [place] Score: 14:45 Eye Response: spontaneous(4). Verbal Response: oriented(5). Motor Response: obeys hb commands(6). Total: 15. Trauma Score (Adult): 14:45 Eye Response: spontaneous(1); Verbal Response: oriented(1); Motor Response: obeys hb commands(2); Systolic BP: > 89 mm Hg(4); Respiratory Rate: 10 to 29 per min(4); [place] Score: 15; Trauma Score: 12 15:45 Eye Response: spontaneous(1); Verbal Response: oriented(1); Motor Response: obeys hb commands(2); Systolic BP: > 89 mm Hg(4); Respiratory Rate: 10 to 29 per min(4); [place] Score: 15; Trauma Score: 12 16:45 Eye Response: spontaneous(1); Verbal Response: oriented(1); Motor Response: obeys hb commands(2); Systolic BP: > 89 mm Hg(4); Respiratory Rate: 10 to 29 per min(4); [place] Score: 15; Trauma Score: 12 ED Course: 14:39 Patient arrived in ED. mr 14:39 Haris Cruz DO is Private Physician. mr 14:43 Triage completed. ph 14:44 Arm band placed on Patient placed in an exam room. ph 14:52 Abdulaziz Lucio MD is Attending Physician. kdr 14:55 Patient has correct armband on for positive identification. Placed in gown. Bed in low hb position. Call light in reach. Side rails up X 1. 14:55 Patient maintains SpO2 saturation greater than 95% on room air. hb 15:15 Thermoregulation: warm blanket given to patient. hb 16:05 Shaylee Ramsay, RN is Primary Nurse. hb 16:45 No provider procedures requiring assistance completed. Patient did not have IV access hb during this emergency room visit. 17:13 Haris Cruz DO is Referral Physician. kdr Administered Medications: 15:03 Drug: Tetanus-Diphtheria Toxoid Adult 0.5 ml {Fur Stylist: Natanael Ulien. Exp: hb 05/06/2021. Lot #: [id number]. } Route: IM; Site: right deltoid; 15:14 Drug: [place] (7.5 mg-325 mg) 1 tabs Route: PO; hb Intake: 14:45 PO: 0ml; Total: 0ml. hb Output: 14:45 Urine: 0ml; Total: 0ml. hb Outcome: 17:15 Discharge ordered by MD. kdr 17:40 Discharged to home ambulatory, with significant other. hb 17:40 Condition: stable 17:40 Discharge instructions given to patient, Instructed on discharge instructions, follow up and referral plans. medication usage, wound care, Demonstrated understanding of instructions, follow-up care, medications, Prescriptions given X 1, 2. 17:40 Patient's length of stay was not longer than 2 hours. 17:46 Patient left the ED. hb Signatures: Abdulaziz Lucio MD MD [facility] Hollie Simmons RN RN ph Shaylee Ramsay, JUNIOR RN hb Corrections: (The following items were deleted from the chart) 17:48 17:40 Discharge instructions given to patient, Instructed on discharge instructions, hb follow up and referral plans. medication usage, wound care, Demonstrated understanding of instructions, follow-up care, medications, Prescriptions given X 1, 2, hb
--- NOTE | 2019-11-06 17:16 | EDPHYS ---
Physician Documentation [facility] Name: Nimesh Silveira Jr Age: 54 yrs Sex: Male : 1965 Arrival Date: 11/06/2019 Time: 14:39 Bed 8 Private MD: [facility] ED Physician Abdulaziz Lucio HPI: 11/06 15:04 This 54 yrs old Male presents to ER via Ambulatory with complaints of Fall kdr Injury. 15:04 Details of fall: The patient fell from a height, from a ladder, approximately 2 feet. kdr Onset: The symptoms/episode began/occurred suddenly, just prior to arrival. Associated injuries: The patient sustained Left posterior thorax, left forearm and elbow, anterior mid tibia bilaterally - abrasions, contusions. Severity of symptoms: At their worst the symptoms were mild, in the emergency department the symptoms are unchanged. The patient has not experienced similar symptoms in the past. The patient has not recently seen a physician. The patient was on a ladder that slipped down the object it was leaning against onto concrete. He denies LOC or hitting his head in any away and there is not evidence of head injury on exam.. Historical: - Allergies: 14:44 No Known Allergies; ph - Home Meds: 16:06 Omeprazole Oral [Active]; hb - PMHx: 14:44 acid reflux; ph - PSHx: 14:44 Appendectomy; Tonsillectomy; ph - Immunization history: Last tetanus immunization: unknown. - Social history:: Smoking status: Patient/guardian denies using tobacco. - Ebola Screening: : No symptoms or risks identified at this time. ROS: 15:04 Constitutional: Negative for fever, chills, and weight loss, Eyes: Negative for injury, kdr pain, redness, and discharge, Neck: Negative for injury, pain, and swelling, Cardiovascular: Negative for chest pain, palpitations, and edema, Respiratory: Negative for shortness of breath, cough, wheezing, and pleuritic chest pain, Abdomen/GI: Negative for abdominal pain, nausea, vomiting, diarrhea, and constipation, Back: Minor injury and pain - abraison to left posterior thorax Skin: Negative for injury, rash, and discoloration, Neuro: Negative for headache, weakness, numbness, tingling, and seizure activity. Psych: Negative for depression, anxiety, suicide ideation, homicidal ideation, and hallucinations, Allergy/Immunology: Negative for hives, rash, and allergies, Endocrine: Negative for neck swelling, polydipsia, polyuria, polyphagia, and marked weight changes, Hematologic/Lymphatic: Negative for swollen nodes, abnormal bleeding, and unusual bruising. 15:04 MS/extremity: Positive for abrasion, left forearm and elbow, bilateral anterior mid tibia . Exam: 15:04 Constitutional: This is a well developed, well nourished patient who is awake, alert, kdr and in no acute distress. Head/Face: Normocephalic, atraumatic. Eyes: Pupils equal round and reactive to light, extra-ocular motions intact. Lids and lashes normal. Conjunctiva and sclera are non-icteric and not injected. Cornea within normal limits. Periorbital areas with no swelling, redness, or edema. Neck: Trachea midline, no thyromegaly or masses palpated, and no cervical lymphadenopathy. Supple, full range of motion without nuchal rigidity, or vertebral point tenderness. No Meningismus. Chest/axilla: Normal chest wall appearance and motion. Nontender with no deformity. No lesions are appreciated. Cardiovascular: Regular rate and rhythm with a normal S1 and S2. No gallops, murmurs, or rubs. Normal PMI, no JVD. No pulse deficits. Respiratory: Lungs have equal breath sounds bilaterally, clear to auscultation and percussion. No rales, rhonchi or wheezes noted. No increased work of breathing, no retractions or nasal flaring. Abdomen/GI: Soft, non-tender, with normal bowel sounds. No distension or tympany. No guarding or rebound. No evidence of tenderness throughout. Skin: Warm, dry with normal turgor. Normal color with no rashes, no lesions, and no evidence of cellulitis. There are the abrasions and contusions as noted above MS/ Extremity: Pulses equal, no cyanosis. Neurovascular intact. Full, normal range of motion. Neuro: Awake and alert, GCS 15, oriented to person, place, time, and situation. Cranial nerves II-XII grossly intact. Motor strength 5/5 in all extremities. Sensory grossly intact. Cerebellar exam normal. Normal gait. Psych: Awake, alert, with orientation to person, place and time. Behavior, mood, and affect are within normal limits. Vital Signs: 14:43 BP 115 / 81; Pulse 103; Resp 18; Temp 97.9; Pulse Ox 95% on R/A; Weight 84.82 kg; ph Height 5 ft. 9 in. (175.26 cm); 15:45 BP 132 / 70; Pulse 88; Resp 15; Pulse Ox 100% on R/A; Pain 3/10; hb 16:45 BP 136 / 76; Pulse 85; Resp 16; Pulse Ox 100% on R/A; Pain 2/10; hb 14:43 Body Mass Index 27.61 (84.82 kg, 175.26 cm) ph [place] Score: 14:45 Eye Response: spontaneous(4). Verbal Response: oriented(5). Motor Response: obeys hb commands(6). Total: 15. Trauma Score (Adult): 14:45 Eye Response: spontaneous(1); Verbal Response: oriented(1); Motor Response: obeys hb commands(2); Systolic BP: > 89 mm Hg(4); Respiratory Rate: 10 to 29 per min(4); [place] Score: 15; Trauma Score: 12 15:45 Eye Response: spontaneous(1); Verbal Response: oriented(1); Motor Response: obeys hb commands(2); Systolic BP: > 89 mm Hg(4); Respiratory Rate: 10 to 29 per min(4); [place] Score: 15; Trauma Score: 12 16:45 Eye Response: spontaneous(1); Verbal Response: oriented(1); Motor Response: obeys hb commands(2); Systolic BP: > 89 mm Hg(4); Respiratory Rate: 10 to 29 per min(4); [place] Score: 15; Trauma Score: 12 MDM: 15:04 Data reviewed: vital signs, nurses notes, lab test result(s), radiologic studies. kdr Counseling: I had a detailed discussion with the patient and/or guardian regarding: the historical points, exam findings, and any diagnostic results supporting the discharge/admit diagnosis, lab results, radiology results, the need for outpatient follow up. 17:15 Patient medically screened. kdr 11/06 14:54 Order name: [facility]. Order: Clean and dress wounds; Complete Time: 15:03 kdr Administered Medications: 15:03 Drug: Tetanus-Diphtheria Toxoid Adult 0.5 ml {State'S Attorney: [employer]. Exp: hb 05/06/2021. Lot #: [id number]. } Route: IM; Site: right deltoid; 15:14 Drug: [place] (7.5 mg-325 mg) 1 tabs Route: PO; hb Disposition: 11/06/19 17:15 Discharged to Home. Impression: Other slipping, tripping and stumbling and falls, Multiple contusions and abrsaions to extremities. - Condition is Stable. - Discharge Instructions: Rib Contusion, Contusion, [id number], Abrasion, [id number]. - Prescriptions for Tramadol 50 mg Oral Tablet - take 1 tablet by ORAL route every 8 hours as needed; 12 tablet. - Medication Reconciliation Form, Thank You Letter form. - Follow up: Haris Cruz DO; When: 2 - 3 days; Reason: If symptoms return, Further diagnostic work-up, Recheck today's complaints, Continuance of care, Re-evaluation by your physician. - Problem is new. - Symptoms have improved. Signatures: Abdulaziz Lucio MD MD [facility] Hollie Simmons RN RN Shaylee Ramsay RN RN Corrections: (The following items were deleted from the chart) 17:46 17:15 11/06/2019 17:15 Discharged to Home. Impression: Other slipping, tripping and hb stumbling and falls; Multiple contusions and abrsaions to extremities. Condition is Stable. Forms are Medication Reconciliation Form, Thank You Letter, Antibiotic Education, Prescription Opioid Use. Follow up: Haris Cruz; When: 2 - 3 days; Reason: If symptoms return, Further diagnostic work-up, Recheck today's complaints, Continuance of care, Re-evaluation by your physician. Problem is new. Symptoms have improved. kdr
[2019-11-06 20:30] VITALS: TEMP 97.9
[2019-11-06 20:31] VITALS: BP 132/70; O2SAT 100
== END 2019-11-06 17:46 | disposition home or self-care (01) ==
LOC: ER 14:36
DX: S50.12XA Contusion of left forearm, initial encounter (principal); S80.12XA Contusion of left lower leg, initial encounter; S80.11XA Contusion of right lower leg, initial encounter; W01.0XXA Fall on same level from slipping, tripping and stumbling without subsequent striking against object, initial encounter; Y93.9 Activity, unspecified; Y92.9 Unspecified place or not applicable; Z23 Encounter for immunization
CPT/HCPCS: 90471; 90714; 99284

== ENCOUNTER 2021-03-24 15:29 | Emergency (ER) | payer OTHER ==
[2021-03-24 18:45] LABS: Absolute Lymphocytes (CBC) 2.3 K/uL (0.7-4.9); Basophils % 0.3 % (0-1.3); Hematocrit 42.6 % (39.6-49.0); Lymphocytes % 25.1 % (15.3-44.8); MPV 8.3 fL (7.6-11.3)
[2021-03-24] MEDS ORDERED: DIAZEPAM 5 MG TABLET ONE (18:46)
[2021-03-24] MEDS ORDERED: MORPHINE 2 MG/ML SYR ONE (18:46)
[2021-03-24] MEDS ORDERED: KETOROLAC 30 MG/ML INJ ONE (18:47)
[2021-03-24] MEDS ORDERED: NA CHLORIDE 0.9% 1,000 ML ONE (18:47)
[2021-03-24] MEDS ORDERED: dexAMETHasone 10 MG/ML VIAL ONE (18:47)
[2021-03-24] MEDS ORDERED: ONDANSETRON 4 MG/2 ML VIAL ONE (18:47)
--- NOTE | 2021-03-24 19:00 | RAD REPORT ---
EXAM DESCRIPTION: CT - Spine Lumbar Wo Con - 03/24/2021 6:45 pm CLINICAL HISTORY: Radiculopathy. Pain;Radiculopathy COMPARISON: No comparisons TECHNIQUE: Axial noncontrast CT imaging of the lumbar spine was performed with coronal and sagittal re-formatted images. All CT scans are performed using dose optimization technique as appropriate and may include automated exposure control or mA/KV adjustment according to patient size. FINDINGS: No acute lumbar spine fracture seen. No aggressive marrow pattern or malalignment. Paraspinal tissues are normal in thickness. No paraspinal abscess or hematoma seen. Moderately severe spondylosis is present at L5-S1 with vacuum disc degeneration. Small posterior oste ophytes are present. IMPRESSION: No acute lumbar spine abnormality. Moderately severe spondylosis L5-S1.
[2021-03-24 19:07] LABS: Albumin 3.6 g/dL (3.4-5.0); Bilirubin Total 0.2 mg/dL (0.2-1.0); Potassium 3.9 mmol/L (3.5-5.1); Protein, Total 7.3 g/dL (6.4-8.2)
--- NOTE | 2021-03-24 19:19 | ER ---
Nurse's Notes [facility] Name: Nimesh Silveira Jr Age: 55 yrs Sex: Male : 1965 Arrival Date: 03/24/2021 Time: 15:30 Bed 25 Private MD: Diagnosis: Sciatica, right side;Sciatica;Low back pain;Spondylolysis, lumbar region-moderate severe L5-S1 Presentation: 03/24 15:48 Chief complaint: Patient states: R leg pain since 03/21/21. States he got his 2nd ll1 Moderna shot on 03/20/21. No falls or trauma. States R leg feels numb at times. States he has had this pain before, but never severe. Coronavirus screen: Client denies travel out of the [place] in the last 14 days. At this time, the client does not indicate any symptoms associated with coronavirus-19. Ebola Screen: Patient denies travel to an Ebola-affected area in the 21 days before illness onset. Initial Sepsis Screen: Does the patient meet any 2 criteria? HR > 90 bpm. No. Patient's initial sepsis screen is negative. Does the patient have a suspected source of infection? Yes: Bone or joint infection. Risk Assessment: Do you want to hurt yourself or someone else? Patient reports no desire to harm self or others. Onset of symptoms was March 21, 2021. 15:48 Method Of Arrival: Ambulatory ll1 15:48 Acuity: FRANCIA 3 ll1 Historical: - Allergies: 15:51 No Known Allergies; ll1 - PMHx: 15:51 acid reflux; Myocardial infarction; ll1 - PSHx: 15:51 Appendectomy; Tonsillectomy; ll1 - Immunization history:: Client reports receiving the 2nd dose of the Covid vaccine, Flu vaccine is up to date. - Social history:: Smoking status: Patient/guardian denies using tobacco, the patient reports quitting approximately 1 years ago. - Family history:: not pertinent. Screenin:05 Abuse screen: Denies threats or abuse. Nutritional screening: No deficits noted. bb Tuberculosis screening: No symptoms or risk factors identified. Fall Risk None identified. Assessment: 18:05 General: Appears in no apparent distress. uncomfortable, Behavior is calm, cooperative. bb Pain: Complains of pain in right leg. Neuro: Level of Consciousness is awake, alert, obeys commands, Oriented to person, place, time, situation. Cardiovascular: No deficits noted. Respiratory: Respiratory effort is even, unlabored. Derm: Skin is pink, warm \T\ dry. Musculoskeletal: Circulation, motion, and sensation intact. Reports pain in right leg. 18:40 Reassessment: pt to CT via wheelchair accompanied by telemetry technician. bb 19:16 Reassessment: Patient is alert, oriented x 3, equal unlabored respirations, skin bb warm/dry/pink. pt verbalized understanding of and agrees to plan of care discharge instructions given pt ambulated with steady gait to exit accompanied by family. Vital Signs: 15:48 BP 151 / 91; Pulse 107; Resp 17; Temp 98.1; Pulse Ox 96% ; Weight 91.63 kg; Height 5 ll1 ft. 9 in. (175.26 cm); Pain 10/10; 18:30 BP 134 / 82; Pulse 87; Resp 16 S; Pulse Ox 96% on R/A; bb 19:16 BP 124 / 79; Pulse 75; Resp 16 S; Temp 98.1(O); Pulse Ox 94% on R/A; Pain 0/10; bb 15:48 Body Mass Index 29.83 (91.63 kg, 175.26 cm) ll1 ED Course: 15:30 Patient arrived in ED. ds1 15:50 Triage completed. ll1 15:51 Arm band placed on. ll1 18:00 Yong Borjas MD is Attending Physician. mendoza 18:05 No provider procedures requiring assistance completed. bb 18:30 Initial lab(s) drawn, by me, sent to lab. Inserted saline lock: 20 gauge in left wrist, jp3 using aseptic technique. Blood collected. Patient maintains SpO2 saturation greater than 95% on room air. 18:32 Bed in low position. Call light in reach. Side rails up X 1. Verbal reassurance given. jp3 Pulse ox on. NIBP on. 18:45 CT Lumbar Spine Wo Con In Process Unspecified. EDMS 19:17 IV discontinued, intact, bleeding controlled, No redness/swelling at site. Pressure bb dressing applied. 19:18 Luiz Kendall MD is Referral Physician. mendoza Administered Medications: 18:33 Drug: NS 0.9% 1000 ml Route: IV; Rate: 1 bolus; Site: left wrist; bb 19:15 Follow up: IV Status: Order to discontinue infusion; IV Intake: 500ml bb 18:33 Drug: Valium (diazepam) 5 mg Route: PO; bb 19:15 Follow up: Response: Marked relief of symptoms bb 18:33 Drug: Zofran (Ondansetron) 4 mg Route: IVP; Site: left wrist; bb 19:16 Follow up: Response: No adverse reaction bb 18:35 Drug: Decadron - Dexamethasone 10 mg Route: IVP; Site: left wrist; bb 19:15 Follow up: Response: Marked relief of symptoms bb 18:35 Drug: TORadol (ketorolac) 30 mg Route: IVP; Site: left wrist; bb 19:15 Follow up: Response: Marked relief of symptoms bb 18:36 Drug: morphine 2 mg Route: IVP; Site: left wrist; bb 19:15 Follow up: Response: Pain is decreased; RASS: Alert and Calm (0) bb Intake: 19:15 IV: 500ml; Total: 500ml. bb Outcome: 19:17 Discharged to home ambulatory, with family. bb 19:17 Condition: stable 19:17 Discharge instructions given to patient, Instructed on discharge instructions, follow up and referral plans. no driving heavy equipment, medication usage, Demonstrated understanding of instructions, follow-up care, medications, Prescriptions given X 4. 19:18 Discharge ordered by MD. donaldson 19:19 Patient left the ED. bb Signatures: Dispatcher [employer] Yong Boles MD MD cha Sanford, Demi ds1 Emmy Sunshine RN RN bb Rodrigue Short jp3 Nga Rodriguez RN RN ll1
--- NOTE | 2021-03-24 19:19 | EDPHYS ---
Physician Documentation [facility] Name: Nimesh Silveira Jr Age: 55 yrs Sex: Male : 1965 Arrival Date: 03/24/2021 Time: 15:30 Bed 25 Private MD: ED Physician Yong Borjas HPI: 03/24 18:24 This 55 yrs old Male presents to ER via Ambulatory with complaints of Leg Pain.mendoza 18:24 The patient presents with decreased range of motion, an injury, pain. The complaints mendoza affect the right lower back and right gluteus tammie. Context: The problem was sustained at an unknown site, resulted from an unknown cause, the patient can fully bear weight, the patient is able to ambulate, Problem is a result from a previous injury: No. Onset: The symptoms/episode began/occurred 3 day(s) ago. Modifying factors: The symptoms are alleviated by elevating leg, remaining still. Associated signs and symptoms: The patient has no apparent associated signs or symptoms. Treatment prior to arrival includes: no previous treatment. Severity of symptoms: At their worst the symptoms were moderate, in the emergency department the symptoms are unchanged. The patient has experienced similar episodes in the past, several times. Historical: - Allergies: 15:51 No Known Allergies; ll1 - PMHx: 15:51 acid reflux; Myocardial infarction; ll1 - PSHx: 15:51 Appendectomy; Tonsillectomy; ll1 - Immunization history:: Client reports receiving the 2nd dose of the Covid vaccine, Flu vaccine is up to date. - Social history:: Smoking status: Patient/guardian denies using tobacco, the patient reports quitting approximately 1 years ago. - Family history:: not pertinent. ROS: 18:24 Constitutional: Negative for fever, chills, and weight loss, Eyes: Negative for injury, mendoza pain, redness, and discharge, ENT: Negative for injury, pain, and discharge, Neck: Negative for injury, pain, and swelling, Cardiovascular: Negative for chest pain, palpitations, and edema, Respiratory: Negative for shortness of breath, cough, wheezing, and pleuritic chest pain, Abdomen/GI: Negative for abdominal pain, nausea, vomiting, diarrhea, and constipation, : Negative for injury, bleeding, discharge, and swelling, MS/Extremity: Negative for injury and deformity, Skin: Negative for injury, rash, and discoloration, Neuro: Negative for headache, weakness, numbness, tingling, and seizure, Psych: Negative for depression, anxiety, suicide ideation, homicidal ideation, and hallucinations, Allergy/Immunology: Negative for hives, rash, and allergies, Endocrine: Negative for neck swelling, polydipsia, polyuria, polyphagia, and marked weight changes, Hematologic/Lymphatic: Negative for swollen nodes, abnormal bleeding, and unusual bruising. 18:24 Back: Positive for decreased range of motion, pain at rest, radiated pain, of the right low back. Exam: 18:24 Constitutional: This is a well developed, well nourished patient who is awake, alert, mendoza and in no acute distress. Head/Face: Normocephalic, atraumatic. Eyes: Pupils equal round and reactive to light, extra-ocular motions intact. Lids and lashes normal. Conjunctiva and sclera are non-icteric and not injected. Cornea within normal limits. Periorbital areas with no swelling, redness, or edema. ENT: Nares patent. No nasal discharge, no septal abnormalities noted. Tympanic membranes are normal and external auditory canals are clear. Oropharynx with no redness, swelling, or masses, exudates, or evidence of obstruction, uvula midline. Mucous membranes moist. Neck: Trachea midline, no thyromegaly or masses palpated, and no cervical lymphadenopathy. Supple, full range of motion without nuchal rigidity, or vertebral point tenderness. No Meningismus. Chest/axilla: Normal chest wall appearance and motion. Nontender with no deformity. No lesions are appreciated. Cardiovascular: Regular rate and rhythm with a normal S1 and S2. No gallops, murmurs, or rubs. Normal PMI, no JVD. No pulse deficits. Respiratory: Lungs have equal breath sounds bilaterally, clear to auscultation and percussion. No rales, rhonchi or wheezes noted. No increased work of breathing, no retractions or nasal flaring. Abdomen/GI: Soft, non-tender, with normal bowel sounds. No distension or tympany. No guarding or rebound. No evidence of tenderness throughout. Skin: Warm, dry with normal turgor. Normal color with no rashes, no lesions, and no evidence of cellulitis. MS/ Extremity: Pulses equal, no cyanosis. Neurovascular intact. Full, normal range of motion. Neuro: Awake and alert, GCS 15, oriented to person, place, time, and situation. Cranial nerves II-XII grossly intact. Motor strength 5/5 in all extremities. Sensory grossly intact. Cerebellar exam normal. Normal gait. Psych: Awake, alert, with orientation to person, place and time. Behavior, mood, and affect are within normal limits. 18:24 Back: pain, that is mild, that is moderate, ROM is decreased, normal spinal alignment noted, CVA tenderness, is absent, vertebral tenderness, is not appreciated, muscle spasm, is not present. Vital Signs: 15:48 BP 151 / 91; Pulse 107; Resp 17; Temp 98.1; Pulse Ox 96% ; Weight 91.63 kg; Height 5 ll1 ft. 9 in. (175.26 cm); Pain 10/10; 18:30 BP 134 / 82; Pulse 87; Resp 16 S; Pulse Ox 96% on R/A; bb 19:16 BP 124 / 79; Pulse 75; Resp 16 S; Temp 98.1(O); Pulse Ox 94% on R/A; Pain 0/10; bb 15:48 Body Mass Index 29.83 (91.63 kg, 175.26 cm) ll1 MDM: 18:00 Patient medically screened. mendoza 18:26 Differential diagnosis: contusion, tendonitis. Data reviewed: vital signs, nurses mendoza notes, lab test result(s), radiologic studies, CT scan. Data interpreted: radiation monitor: rate is 107 beats/min, rhythm is regular, Pulse oximetry: on room air is 96 %. Counseling: I had a detailed discussion with the patient and/or guardian regarding: the historical points, exam findings, and any diagnostic results supporting the discharge/admit diagnosis, lab results, radiology results, the need for outpatient follow up, for definitive care, a family practitioner, a neurologist. 03/24 18: Order name: CBC with Diff; Complete Time: 18:58 mendoza 03/24 18:23 Order name: Comprehensive Metabolic Panel; Complete Time: 19:10 [facility] 03/24 18:23 Order name: CT Lumbar Spine Wo Con; Complete Time: 19:02 mendoza Administered Medications: 18:33 Drug: NS 0.9% 1000 ml Route: IV; Rate: 1 bolus; Site: left wrist; bb 19:15 Follow up: IV Status: Order to discontinue infusion; IV Intake: 500ml bb 18:33 Drug: Valium (diazepam) 5 mg Route: PO; bb 19:15 Follow up: Response: Marked relief of symptoms bb 18:33 Drug: Zofran (Ondansetron) 4 mg Route: IVP; Site: left wrist; bb 19:16 Follow up: Response: No adverse reaction bb 18:35 Drug: Decadron - Dexamethasone 10 mg Route: IVP; Site: left wrist; bb 19:15 Follow up: Response: Marked relief of symptoms bb 18:35 Drug: TORadol (ketorolac) 30 mg Route: IVP; Site: left wrist; bb 19:15 Follow up: Response: Marked relief of symptoms bb 18:36 Drug: morphine 2 mg Route: IVP; Site: left wrist; bb 19:15 Follow up: Response: Pain is decreased; RASS: Alert and Calm (0) bb Disposition: 03/24/21 19:18 Discharged to Home. Impression: Sciatica, right side, Sciatica, Low back pain, Spondylolysis, lumbar region - moderate severe L5-S1. - Condition is Stable. - Discharge Instructions: Back Pain, Adult, Musculoskeletal Pain, Sciatica, Back Injury Prevention, [id number]-[id number], Back Pain, Adult, Fwjh-sf-Pzir, Sciatica, Oenm-nx-Musi. - Prescriptions for Ibuprofen 600 mg Oral Tablet - take 1 tablet by ORAL route every 6 hours As needed take with food; 28 tablet. Tylenol- Codeine #3 300-30 mg Oral Tablet - take 2 tablet by ORAL route every 4-6 hours As needed; 30 tablet. Medrol (Flaco) 4 mg Oral Tablets, Dose Pack - take 1 tablet by ORAL route as directed - follow package instructions; 1 packet. Cyclobenzaprine 5 mg Oral Tablet - take 1 tablet by ORAL route 3 times per day As needed; 15 tablet. - Medication Reconciliation Form, Thank You Letter, Antibiotic Education, Prescription Opioid Use form. - Follow up: Private Physician; When: 2 - 3 days; Reason: Recheck today's complaints, Continuance of care, Re-evaluation by your physician. Follow up: Luiz Kendall; When: 2 - 3 days; Reason: Recheck today's complaints, Re-evaluation by your physician. - Problem is new. - Symptoms have improved. Signatures: Dispatcher [employer] EDYong Cifuentes MD MD cha Ballard, Brenda, RN RN bb Nga Rodriguez RN RN ll1 Corrections: (The following items were deleted from the chart) 19:16 18:23 Urine Dipstick-Ancillary ordered. mendoza nugent 19:19 19:18 03/24/2021 19:18 Discharged to Home. Impression: Sciatica, right side; Sciatica; bb Low back pain; Spondylolysis, lumbar region - moderate severe L5-S1. Condition is Stable. Discharge Instructions: Back Pain, Adult, Musculoskeletal Pain, Sciatica, Back Injury Prevention, Zfmk-ye-Xico, Back Pain, Adult, Gxws-yh-Hcvo, Sciatica, Ymgr-pg-[id number]. Prescriptions for Ibuprofen 600 mg Oral Tablet - take 1 tablet by ORAL route every 6 hours As needed take with food; 28 tablet, Tylenol-Codeine #3 300-30 mg Oral Tablet - take 2 tablet by ORAL route every 4-6 hours As needed; 30 tablet, Medrol (Flaco) 4 mg Oral Tablets, Dose Pack - take 1 tablet by ORAL route as directed - follow package instructions; 1 packet, Cyclobenzaprine 5 mg Oral Tablet - take 1 tablet by ORAL route 3 times per day As needed; 15 tablet. and Forms are Medication Reconciliation Form, Thank You Letter, Antibiotic Education, Prescription Opioid Use. Follow up: Private Physician; When: 2 - 3 days; Reason: Recheck today's complaints, Continuance of care, Re-evaluation by your physician. Follow up: Luiz Kendall; When: 2 - 3 days; Reason: Recheck today's complaints, Re-evaluation by your physician. Problem is new. Symptoms have improved. mendoza
[2021-03-24 19:26] VITALS: TEMP 98.1
[2021-03-24 19:29] VITALS: BP 124/79; O2SAT 94
--- NOTE | 2021-03-26 10:52 | EKG ---
Test Date: 2021-03-24 Test Time: 15:55:36 Concession Attendant: YESENIA MEASUREMENT RESULTS: Intervals: Rate: 104 MO: 178 QRSD: 96 QT: 334 QTc: 439 Una: P: 47 MO: 178 QRS: -44 T: 36 INTERPRETIVE STATEMENTS: Sinus tachycardia Left axis deviation Minimal voltage criteria for LVH, may be normal variant Inferior infarct, age undetermined Anterolateral infarct, age undetermined Abnormal ECG Compared to ECG 07/21/2019 07:43:08 Left-axis deviation now present Left ventricular hypertrophy now present Sinus rhythm no longer present Myocardial infarct finding still present Electronically Signed On 03-26-21 10:47:08 CDT by Rhys Nixon
== END 2021-03-24 19:19 | disposition home or self-care (01) ==
LOC: ER 15:29
DX: M54.31 Sciatica, right side (principal); M43.06 Spondylolysis, lumbar region
CPT/HCPCS: 96361; 93005; 85025; 36415; 80053; 72131; 96375; 96374; 99284; J1100; J2270; J7030; J2405

== ENCOUNTER 2021-06-03 22:33 | Emergency (ER) | payer OTHER ==
[2021-06-03] MEDS ORDERED: DIAZEPAM 5 MG TABLET ONE (23:17)
[2021-06-03] MEDS ORDERED: dexAMETHasone 10 MG/ML VIAL ONE (23:17)
--- NOTE | 2021-06-04 00:01 | EDPHYS ---
Physician Documentation [facility] Name: Nimesh Silveira Jr Age: 55 yrs Sex: Male : 1965 Arrival Date: 06/03/2021 Time: 22:36 Bed 18 Private MD: ED Physician Miles Sterling HPI: 06/03 22:55 This 55 yrs old Male presents to ER via Ambulatory with complaints of Leg Pain.pm1 22:55 The patient presents with pain, that is acute. The complaints affect the right leg. pm1 Context: The problem was sustained at an unknown site, resulted from an unknown cause, the patient can fully bear weight, the patient is able to ambulate, Problem is a result from a previous injury: No. Onset: The symptoms/episode began/occurred today. Modifying factors: The symptoms are alleviated by remaining still, the symptoms are aggravated by movement. Associated signs and symptoms: Pertinent negatives numbness, swelling, tingling. Treatment prior to arrival includes: prescription medications, codeine, without improvement. Severity of symptoms: in the emergency department the symptoms are unchanged. The patient has experienced a previous episode, approximately 2 months ago, and the symptoms today are exactly the same, dx with sciatica. The patient has not recently seen a physician. Pain starts at right buttocks and radiates to right popliteal area. Historical: - Allergies: 22:48 No Known Allergies; em - PMHx: 22:48 acid reflux; Myocardial infarction; em - PSHx: 22:48 heart stent; em - Immunization history:: Adult Immunizations up to date. - Social history:: Smoking status: Patient denies any tobacco usage or history of. ROS: 22:55 Constitutional: Negative for fever, chills, and weight loss, Cardiovascular: Negative pm1 for chest pain, palpitations, and edema, Respiratory: Negative for shortness of breath, cough, wheezing, and pleuritic chest pain, Back: Negative for injury and pain. 22:55 Skin: Negative for injury, rash, and discoloration, Neuro: Negative for headache, weakness, numbness, tingling, and seizure. 22:55 MS/extremity: Positive for pain, of the right gluteal fold, right hamstring and posterior aspect of right knee, Negative for decreased range of motion, deformity. 22:55 All other systems are negative. Exam: 22:55 Constitutional: This is a well developed, well nourished patient who is awake, alert, pm1 and in no acute distress. Head/Face: Normocephalic, atraumatic. 22:55 Back: No spinal tenderness. No costovertebral tenderness. Full range of motion. Skin: Warm, dry with normal turgor. Normal color with no rashes, no lesions, and no evidence of cellulitis. 22:55 Eyes: Exam is negative for acute changes, Extraocular movements: intact throughout, Conjunctiva: no acute changes, no injection. 22:55 ENT: Exam is negative for acute changes, Mouth: Lips: normal, Oral mucosa: normal, pink and intact, moist. 22:55 Cardiovascular: Exam negative for acute changes, Rate: normal, Rhythm: regular, Pulses: no pulse deficits are appreciated. 22:55 Respiratory: Exam negative for acute changes, respiratory distress, shortness of breath. 22:55 Abdomen/GI: Inspection: abdomen appears normal, Palpation: abdomen is soft and non-tender, in all quadrants. 22:55 Musculoskeletal/extremity: Extremities: grossly normal except: noted in the right gluteal fold: tenderness, palpation causes radiation of pain down right leg. Pain with straight leg raise at 10-15 degrees to gluteal area, not to the back. 22:55 Neuro: Exam negative for acute changes, Orientation: is normal, Mentation: is normal, Motor: is normal, moves all fours, Sensation: is normal, no obvious gross deficits. Vital Signs: 22:46 BP 154 / 87; Pulse 83; Resp 16; Temp 97.9; Pulse Ox 98% on R/A; Weight 90.72 kg; Height em 5 ft. 9 in. (175.26 cm); Pain 10/10; 06/04 00:15 BP 142 / 84; Pulse 74; Resp 16; Pulse Ox 98% on R/A; ak2 06/03 22:46 Body Mass Index 29.53 (90.72 kg, 175.26 cm) em MDM: 06/03 22:45 Patient medically screened. pm1 23:59 Data reviewed: vital signs. Data interpreted: Pulse oximetry: on room air is 98 %. pm1 Interpretation: normal. Counseling: I had a detailed discussion with the patient and/or guardian regarding: the historical points, exam findings, and any diagnostic results supporting the discharge/admit diagnosis, the need for outpatient follow up, a family practitioner, to return to the emergency department if symptoms worsen or persist or if there are any questions or concerns that arise at home. 06/04 00:03 ED course: [place] reviewed. pm1 Administered Medications: 06/03 23:02 Drug: Valium (diazepam) 5 mg Route: PO; ak2 23:02 Drug: Decadron (dexamethasone) 10 mg Route: IM; Site: left deltoid; ak2 23:59 Drug: Lidoderm Patch 5 % (700 mg/patch) 1 patches Route: Topical; Site: affected area; ak2 Disposition: 06/04 02:00 Co-signature as Attending Physician, Miles Sterling MD. chitra Disposition Summary: 06/04/21 00:00 Discharge Ordered Location: Home pm1 Problem: new pm1 Symptoms: have improved pm1 Condition: Stable pm1 Diagnosis - Sciatica, right side pm1 Followup: pm1 - With: Emergency Department - When: As needed - Reason: Worsening of condition Followup: pm1 - With: Private Physician - When: 2 - 3 days - Reason: Recheck today's complaints, Continuance of care, Re-evaluation by your physician Discharge Instructions: - Discharge Summary Sheet pm1 - Sciatica pm1 Forms: - Medication Reconciliation Form pm1 - Thank You Letter pm1 - Antibiotic Education pm1 - Prescription Opioid Use pm1 Prescriptions: - Lidoderm 5 % Topical adhesive patch,medicated - apply 1 patch by TRANSDERMAL route once daily As needed 12 hours on and 12 pm1 hours off in a 24 hour period; 10 patch; Refills: 0, Product Selection Permitted - Valium 5 mg Oral Tablet - take 1 tablet by ORAL route every 8 hours As needed; 6 tablet; Refills: 0, pm1 Product Selection Permitted - Medrol (Flaco) 4 mg Oral Tablets, Dose Pack - take 1 tablet by ORAL route as directed - follow package instructions; 1 pm1 packet; Refills: 0, Product Selection Permitted Signatures: Miles Sterling MD MD pkl Harpal Remy, RN RN Andrea Cunningham, [employer] pm1 Anthony Marquez ak2
--- NOTE | 2021-06-04 00:01 | ER ---
Nurse's Notes [facility] Name: Nimesh Silveira Jr Age: 55 yrs Sex: Male : 1965 Arrival Date: 06/03/2021 Time: 22:36 Bed 18 Private MD: Diagnosis: Sciatica, right side Presentation: 06/03 22:46 Chief complaint: Patient states: Right leg pain that radiates down leg that started em yesterday, also reports some low back pain, denies problems with urination or fever. Coronavirus screen: Client denies travel out of the [place] in the last 14 days. Ebola Screen: Patient negative for fever greater than or equal to 101.5 degrees Fahrenheit, and additional compatible Ebola Virus Disease symptoms Patient denies exposure to infectious person. Patient denies travel to an Ebola-affected area in the 21 days before illness onset. No symptoms or risks identified at this time. Initial Sepsis Screen: Does the patient meet any 2 criteria? No. Patient's initial sepsis screen is negative. Does the patient have a suspected source of infection? No. Patient's initial sepsis screen is negative. Risk Assessment: Do you want to hurt yourself or someone else? Patient reports no desire to harm self or others. Onset of symptoms was June 03, 2021. 22:46 Method Of Arrival: Ambulatory em 22:46 Acuity: FRANCIA 4 em Triage Assessment: 06/04 00:15 General: Appears in no apparent distress. Behavior is calm, cooperative. Pain: Denies ak2 pain. Historical: - Allergies: 06/03 22:48 No Known Allergies; em - PMHx: 22:48 acid reflux; Myocardial infarction; em - PSHx: 22:48 heart stent; em - Immunization history:: Adult Immunizations up to date. - Social history:: Smoking status: Patient denies any tobacco usage or history of. Screenin/05 00:15 Abuse screen: Denies threats or abuse. Denies injuries from another. Nutritional ak2 screening: No deficits noted. Tuberculosis screening: No symptoms or risk factors identified. Fall Risk None identified. Vital Signs: 06/03 22:46 BP 154 / 87; Pulse 83; Resp 16; Temp 97.9; Pulse Ox 98% on R/A; Weight 90.72 kg; Height em 5 ft. 9 in. (175.26 cm); Pain 10/10; 06/04 00:15 BP 142 / 84; Pulse 74; Resp 16; Pulse Ox 98% on R/A; ak2 06/03 22:46 Body Mass Index 29.53 (90.72 kg, 175.26 cm) em ED Course: 06/03 22:36 Patient arrived in ED. ds1 22:45 Andrea Miner NP is PHCP. pm1 22:45 Miles Sterling MD is Attending Physician. pm1 22:48 Triage completed. em 22:48 Arm band placed on. em 22:54 Anthony Marquez is Primary Nurse. ak2 06/04 00:15 Patient has correct armband on for positive identification. ak2 00:16 No provider procedures requiring assistance completed. Patient did not have IV access ak2 during this emergency room visit. Administered Medications: 06/03 23:02 Drug: Valium (diazepam) 5 mg Route: PO; ak2 23:02 Drug: Decadron (dexamethasone) 10 mg Route: IM; Site: left deltoid; ak2 23:59 Drug: Lidoderm Patch 5 % (700 mg/patch) 1 patches Route: Topical; Site: affected area; ak2 Outcome: 06/04 00:00 Discharge ordered by . pm1 00:16 Discharged to home ambulatory. ak2 00:16 Condition: good 00:16 Discharge instructions given to patient, Prescriptions given X 00:16 Patient left the ED. ak2 Signatures: Harpal Remy RN RN Tete Mulligan ds1 Andrea Miner NP [employer] pm1 Anthony Marquez ak2
[2021-06-04] MEDS ORDERED: LIDOCAINE 4% PATCH ONE (00:18)
[2021-06-04 00:27] VITALS: TEMP 97.9; O2SAT 98
[2021-06-04 00:28] VITALS: BP 142/84
== END 2021-06-04 00:16 | disposition home or self-care (01) ==
LOC: ER 22:33
DX: M54.31 Sciatica, right side (principal); Z95.818 Presence of other cardiac implants and grafts
CPT/HCPCS: 96372; 99283; J1100

== ENCOUNTER 2023-05-28 18:39 | Emergency (ER) | payer OTHER ==
--- OUTSIDE RECORDS SUMMARY | 2023-05-28 19:30 | XMS REPORT | Continuity of Care Document ---
:1965 Author Organization [facility] t Address [address] [place] [address] [place] [id number] Care Team Providers Name Role Phone EDUARDA MADDOX Primary Care Physician Unavailable Aleks Cruz Attending Clinician Unavailable OLINDA PERRY Attending Clinician Unavailable EDUARDA MADDOX Attending Clinician Unavailable EDUARDA MADDOX Attending Clinician Unavailable EARL MOSES Attending Clinician Unavailable Earl Olmstead Attending Clinician ALEX RODRIGUEZ Attending Clinician Unavailable Alex Xavier Attending Clinician Yamilka VALDEZ, Sendrod K.H. Attending Clinician ALEX DARNELL Attending Clinician Unavailable EVENS FLOWER Attending Clinician Unavailable Pj Morse DO Attending Clinician Evens Flower DO Attending Clinician MATEUS QUEVEDO Attending Clinician Unavailable Doctor Unassigned, [place] Attending Clinician Unavailable AMANDEEP PRATHER K.HBrody Attending Clinician Unavailable 2, [facility] Attending Clinician Unavailable LUANN SERRANO Attending Clinician Unavailable Aleks Cruz Attending Clinician Danny Huerta MD Attending Clinician Akash Peck MD Attending Clinician AKASH PECK Attending Clinician Unavailable JAMI MARTINES Attending Clinician Unavailable JAMI MARTINES Attending Clinician Unavailable ALEKS CRUZ Admitting Clinician Unavailable EARL MOSES Admitting Clinician Unavailable ALEX RODRIGUEZ Admitting Clinician Unavailable EVENS FLOWER Admitting Clinician Unavailable Evens Flower DO Admitting Clinician Akash Peck MD Admitting Clinician AKASH PECK Admitting Clinician Unavailable JAMI MARTINES Admitting Clinician Unavailable Payers Payer Name Policy Type Policy Number Effective Date Expiration Date Essence BLOUNT II [id number] 2020 00:00:00 Problems Condition Condition Condition Status Onset Resolution Last Treating Co mments Source Name Details Category Date Date Treatment Clinician Date Chest Chest Disease Active Univers pain, pain, 2-05 ity of unspecif[place] type d type 00 Medical Branch Coronary Coronary Disease Active Unive rs artery artery 2-05 ity of disease disease 00:00: [place] involving involving 00 Medi ronn [place] Branch coronary coronary artery of artery of red [place] heart heart Coronary Coronary Disease Active Unive rs artery artery 2-05 ity of disease disease 00:00: [place] involving involving 00 Medi ronn red cliff red cliff Branch coronary coronary artery of artery of [place] heart heart Erectile Erectile Disease Active 2021-12 Unive rs dysfunctio dysfunctio 2-08 it y of n, n, 00:00: [place] unspecifie unspecifie 00 Me dical d erectile d erectile Br anch dysfunctio dysfunctio n type n type Mixed Mixed Disease Active 2021-12 Univers hyperlipid hyperlipid 2-08 it y of emia emia 00:00: [place] 00 Medical Branch Primary Primary Disease Active 2021-12 Univers hypertensi hypertensi 2-08 it y of on on 00:00: [place] Medical Branch Chronic Chronic Disease Active 2021-12 Univers bilateral bilateral 2-08 ity of low back low back 00:00: [place] pain with pain with 00 Medi ronn right-side right-side Br anch d sciatica d sciatica S/P S/P Disease Active 2020-12 Univers cardiac cardiac 2-29 ity of cath cath 00:00: [place] 00 Medical Branch Chest pain Chest pain Disease Active 2020-12 U nivers 2 ity of 00:00: [place] 00 Medical Branch Allergies, Adverse Reactions, Alerts Allergy Allergy Status Severity Reaction(s) Onset Inactive Treating Comm ents Source Name Type Date Date Clinician NO KNOWN Drug Active Univers ALLERGIE Class ity of S [place] [facility] Social History Social Habit Start Date Stop Date Quantity Comments Source History SDOH Social Unive rsity of Connections [facility] Med ical Together Branch History SDOH Social Unive rsity of Connections [facility] Medical Branch History SDOH Social Unive rsity of Connections [place] [facility] Membership Branch History SDOH Social Unive rsity of Connections [place] [facility] Meetings Branch History of tobacco Cigarette Smoker University of use [place] [facility] Alcohol intake 2023-05-19 2023-05-19 Lifetime University of 00:00:00 00:00:00 non-drinker [place] Medical (finding) Branch Exposure to 2023-03-02 2023-03-12 Not sure University of SARS-CoV-2 (event) 00:00:00 12:04:00 [place] [facility] History SDOH 2023-01-06 2023-01-06 1 University o f Alcohol Frequency 00:00:00 00:00:00 [place] M edical Branch History SDOH 2023-01-06 2023-01-06 0 University o f Alcohol Std Drinks 00:00:00 00:00:00 [place] [facility] History SDOH 2023-01-06 2023-01-06 1 University o f Alcohol Binge 00:00:00 00:00:00 [place] Medic al Branch History SDOH Social 2023-01-06 2023-01-06 5 Unive rsity of Connections Phone 00:00:00 00:00:00 [place] M edical Branch History SDOH Social 2023-01-06 2023-01-06 3 Unive rsity of Connections Living 00:00:00 00:00:00 [place] [facility] History SDOH 2023-01-06 2023-01-06 5 University o f Physical Activity 00:00:00 00:00:00 [place] M edical DPW Branch History SDOH 2023-01-06 2023-01-06 3 University o f Physical Activity 00:00:00 00:00:00 [place] M edical MPS Branch History SDOH 2023-01-06 2023-01-06 5 University o f Financial 00:00:00 00:00:00 [place] [facility] History SDOH Food 2023-01-06 2023-01-06 1 Univers ity of Worry 00:00:00 00:00:00 [place] [facility] History SDOH Food 2023-01-06 2023-01-06 1 Univers ity of Scarcity 00:00:00 00:00:00 [place] [facility] History SDOH 2023-01-06 2023-01-06 2 University o f Transport Med 00:00:00 00:00:00 [place] Medic al Branch History SDOH 2023-01-06 2023-01-06 2 [place] o f Transport Non-Med 00:00:00 00:00:00 [facility] Branch Cigarettes smoked 2023-01-05 2023-01-05 Univers ity of current (pack per 00:00:00 00:00:00 [facility] ) - Reported Branch Cigarette 2023-01-05 2023-01-05 University of pack-years 00:00:00 00:00:00 [facility] Tobacco use and 2023-01-05 2023-01-05 User of Universit y of exposure 00:00:00 00:00:00 smokeless [facility] tobacco [place] Tobacco Comment 2023-01-05 2023-01-05 2 cigs a day Univers ity of 00:00:00 00:00:00 [facility] Education 2021-11-28 2021-11-28 11 University of 00:00:00 00:00:00 [facility] Sex [birth year] At [birth year] Universit y of 00:00:00 00:00:00 [facility] Smoking Status Start Date Stop Date Source Occasional tobacco 2023-01-05 00:00:00 Universit y of [place] smoker Medical Branch Ex-smoker 2022-11-06 00:00:00 2022-11-06 [place] o f [place] 00:00:00 Medical Branch Medications Ordered Filled Start Stop Current Ordering Indication Dosage Frequency Signature Comments Components Source Medication Medication Date Date Medication? Clinician (SIG) Name Name traMADoL 50 2022-0 Yes [id number] 50mg Take 1 Univ ers mg tablet 6-19 tablet by ity o f 00:00: mouth [place] 00 every 6 Medical (six) Branch hours as needed for Pain (scale 7-10). Indication s: acute pain ondansetron 2022- No 4mg 4 mg, Slow Univers (ZOFRAN 4-12 -12 IV Push, ity of (PF)) 16:30: 16:29 ONCE, 1 [place] injection 4 00 :00 dose, On Medi ronn mg Wed Branch 03/12/23 at 1130, JOSE ondansetron 2022-0 Yes [id number] 4mg Take 1 Univers 4 mg 4-12 tablet by ity of disintegrat 00:00: mouth [place] ing tablet 00 every 12 Medic al (twelve) Branch hours as needed for Nausea and Vomiting (N/V). ondansetron 2022- Yes [id number] 4mg Take 1 Univers 4 mg 4-12 tablet by ity of disintegrat 00:00: mouth [place] ing tablet 00 every 12 Medic al (twelve) Branch hours as needed for Nausea and Vomiting (N/V). ATORVASTATI Yes [id number] TAKE 1 Univers N 80 mg 3-23 TABLET BY ity of tablet 00:00: MOUTH [place] 00 EVERY DAY Medical IN THE Branch EVENING ATORVASTATI 0 Yes [id number] TAKE 1 Univers N 80 mg 3-23 TABLET BY ity of tablet 00:00: MOUTH [place] 00 EVERY DAY Medical IN THE Branch EVENING ATORVASTATI 0 Yes [id number] TAKE 1 Univers N 80 mg 3-23 TABLET BY ity of tablet 00:00: MOUTH [place] 00 EVERY DAY Medical IN THE Branch EVENING ATORVASTATI 0 Yes [id number] TAKE 1 Univers N 80 mg 3-23 TABLET BY ity of tablet 00:00: MOUTH [place] 00 EVERY DAY Medical IN THE Branch EVENING ATORVASTATI 0 Yes [id number] TAKE 1 Univers N 80 mg 3-17 TABLET BY ity of tablet 00:00: MOUTH [place] 00 EVERY Medical EVENING. Branch PLEASE FOLLOW UP WITH DOCTOR FOR REFILLS ATORVASTATI 2022-0 Yes [id number] TAKE 1 Univers N 80 mg 3-17 TABLET BY ity of tablet 00:00: MOUTH [place] 00 EVERY Medical EVENING. Branch PLEASE FOLLOW UP WITH DOCTOR FOR REFILLS ATORVASTATI 2022-0 2022- No [id number] TAKE 1 Univers N 80 mg 3-17 02-20 TABLET BY ity of tablet 00:00: 00:00 MOUTH [place] 00 :00 EVERY Medical EVENING. Branch PLEASE FOLLOW UP WITH DOCTOR FOR REFILLS atorvastati 2022-0 Yes [id number] 80mg Take 1 Univers n 80 mg - tablet by ity of tablet 00:00: mouth [place] 00 every Medical evening. Branch Please follow up for refills. atorvastati 2022-0 3- No [id number] 80mg Take 1 Univers n 80 mg 01-22 tablet by ity of tablet 00:00: 00:00 mouth [place] 00 :00 every Medical evening. Branch Please follow up for refills. atorvastati 2022-0 2022- No [id number] 80mg Take 1 Univers n 80 mg 01-22 tablet by ity of tablet 00:00: 00:00 mouth [place] 00 :00 every Medical evening. Branch Please follow up for refills. ezetimibe 2022-3- No [id number] 10mg Take 1 Univers 10 mg 01-08 tablet by ity of tablet 00:00: 05:59 mouth in [place] 00 :00 the Medical morning [place] for 30 days. pantoprazol 2022-2022- No [id number] 40mg Take 1 Univers e 40 mg EC 01-08 tablet by ity of tablet 00:00: 05:59 mouth in [place] 00 :00 [facility] for 30 days. ezetimibe 2022-2022- No [id number] 10mg Take 1 Univers 10 mg 01-08 tablet by ity of tablet 00:00: 05:59 mouth in [place] 00 :00 [facility] for 30 days. pantoprazol 2022-2022- No [id number] 40mg Take 1 Univers e 40 mg EC 01-08 tablet by ity of tablet 00:00: 05:59 mouth in [place] 00 :00 [facility] for 30 days. regadenoson 2022- No [id number] .4mg 0.4 mg, IV Univers (LEXISCAN) 01-07 Push, ity of injection 19:30: 18:29 ONCE, 1 [place] 0.4 mg 00 :00 dose, On Fri01/07/23 Branch at 1330, Routine
assembly member approving Restricted medication : LUANN SERRANO tc 2022- No [id number] 43.5mCi 43.5 Unive rs 99m-tetrofo 2-07 02-07 millicurie i ty of smin 18:45: 18:33 , [place] ([facility]) 00 :00 Intravenou Medi ronn injection s, ONCE, 1 Bran ch 43.5 dose, On fri01/07/23 at 1245, Routine tc 2022- No [id number] 16.4mCi 16.4 Unive rs 99m-tetrofo 2-07 02-07 millicurie i ty of smin 17:15: 17:09 , [place] ([facility]) 00 :00 Intravenou Medi ronn injection s, ONCE, 1 Bran ch 16.4 dose, On fri01/07/23 at 1115, Routine docosahexae 2022-0 Yes 1000mg Take 1,000 Univers noic 2-07 mg by ity of acid/epa 17:06: mouth [place] (FISH OIL 45 daily. Medical ORAL) Branch aspirin 81 2022-0 Yes 81mg Take 81 mg U nivers mg chewable 2-07 by mouth ity of tablet 17:06: in the morning. Medical Branch docosahexae 3-0 Yes 1000mg Take 1,000 Univers noic 2-07 mg by ity of acid/epa 17:06: mouth [place] (FISH OIL 45 daily. Medical ORAL) Branch aspirin 81 2023-0 Yes 81mg Take 81 mg U nivers mg chewable 2-07 by mouth ity of tablet 17:06: in the 45 morning. Medical Branch docosahexae 2023-0 Yes 1000mg Take 1,000 Univers noic 2-07 mg by ity of acid/epa 17:06: mouth [place] (FISH OIL 45 daily. Medical ORAL) Branch aspirin 81 2023-0 Yes 81mg Take 81 mg U nivers mg chewable 2-07 by mouth ity of tablet 17:06: in the 45 morning. Medical Branch docosahexae 2023-0 Yes 1000mg Take 1,000 Univers noic 2-07 mg by ity of acid/epa 17:06: mouth [place] (FISH OIL 45 daily. Medical ORAL) Branch aspirin 81 3-0 Yes 81mg Take 81 mg U nivers mg chewable 2-07 by mouth ity of tablet 17:06: in the [place] [address] morning. Medical Branch docosahexae 3-0 Yes 1000mg Take 1,000 Univers noic 2-07 mg by ity of acid/epa 17:06: mouth [place] (FISH OIL 45 daily. Medical ORAL) Branch aspirin 81 3-0 Yes 81mg Take 81 mg U nivers mg chewable 2-07 by mouth ity of tablet 17:06: in the [place] [address] morning. Medical Branch docosahexae 3-0 Yes 1000mg Take 1,000 Univers noic 2-07 mg by ity of acid/epa 17:06: mouth [place] (FISH OIL 45 daily. Medical ORAL) Branch aspirin 81 3-0 Yes 81mg Take 81 mg U nivers mg chewable 2-07 by mouth ity of tablet 17:06: in the [place] [address] morning. Medical Branch docosahexae 3-0 Yes 1000mg Take 1,000 Univers noic 2-07 mg by ity of acid/epa 17:06: mouth [place] (FISH OIL 45 daily. Medical ORAL) Branch aspirin 81 3-0 Yes 81mg Take 81 mg U nivers mg chewable 2-07 by mouth ity of tablet 17:06: in the [place] [address] morning. Medical Branch docosahexae 3-0 Yes 1000mg Take 1,000 Univers noic 2-07 mg by ity of acid/epa 17:06: mouth [place] (FISH OIL 45 daily. Medical ORAL) Branch aspirin 81 3-0 Yes 81mg Take 81 mg U nivers mg chewable 2-07 by mouth ity of tablet 17:06: in the [place] [address] morning. Medical Branch ezetimibe 2022-0 Yes 10mg 10 mg, Univer s (ZETIA) 2-07 Oral, ity of tablet 10 15:00: DAILY, [place] mg 00 First dose Medical on Fri01/07/23 at 0900, Until Discontinu ed, Routine pantoprazol 3-0 Yes 40mg 40 mg, Univ ers e 2-06 Oral, ity of (PROTONIX) 15:00: DAILY, [place] EC tablet 00 First dose Medi ronn 40 mg on Fri01/06/23 at 0900, Until Discontinu ed, Routine aspirin 2022-0 Yes 81mg 81 mg, Univers chewable 206 Oral, ity of tablet 81 15:00: DAILY, [place] mg 00 First dose Medical on Mon Branch 01/06/23 at 0900, Until Discontinu ed, Routine morpHINE (2 2022- No 2mg 2 mg, Slow Univers mg/mL) 01-06 02-06 IV Push, ity of injection 2 03:30: 02:58 ONCE, 1 [place] mg 00 :00 dose, On Medical [place] 01/05/23 Branch at 2130, Routine metoprolol 2022-0 Yes 25mg 25 mg, Unive rs succinate 06 Oral, ity of XL (TOPROL 02:45: DAILY, [place] XL) tablet 00 First dose Med ical 25 mg (after Branch last modificati on) on [place] 01/05/23 at 2045, Until Discontinu ed, Routine nitroglycer Yes .4mg 0.4 mg, Uni vers in 01-06 Sublingual ity of (NITROSTAT) 01:24: , Q5MIN [place] sublingual 09 PRN, Medical tablet 0.4 Starting Branc h mg on [place] 01/05/23 at 1924, Until Discontinu ed, Routine, Chest pain enoxaparin Yes 40mg 40 mg, Unive rs (LOVENOX) 205 Subcutaneo ity of injection 23:15: [place], DAILY, [place] 40 mg 00 First dose Medical on [facility] 01/05/23 at 1715, Until Discontinu ed, Routine atorvastati 0 Yes 80mg 80 mg, Univ ers n (LIPITOR) 2-05 Oral, QPM, it y of tablet 80 23:15: First dose [place] mg 00 on [facility] 01/05/23 at Branch 1715, Until Discontinu ed, Routine HYDROcodone 2022-0 Yes 1{tbl} 1 tablet, Univers -acetaminop 2-05 Oral, ity of hen (NORCO) 22:58: Q6HPRN, [place] 10-325 mg 26 Starting Medica l tablet 1 on [place] Branch tablet 01/05/23 at 1658, Until Discontinu ed, Routine, Pain (scale 7-10) acetaminoph 2022-0 Yes 650mg 650 mg, Un kenrick en 2-05 Oral, ity of (TYLENOL) 22:58: Q6HPRN, [place] tablet 650 18 Starting Medic al mg on Sun Branch 01/05/23 at 1658, Until Discontinu ed, Routine, Pain (scale 1-3) methylPREDN 2023-0 2023- No [id number] 60mg U nivers ISolone sod 01-02 ity of succ 00:15: 23:15 [place] (SOLU-MEDRO 00 :00 Medical L (PF)) Branch injection 60 mg methylPREDN 3-0 2023- No [id number] 60mg 60 mg, Univers ISolone sod 01-02 Intramuscu i ty of succ 00:15: 23:15 lar, ONCE, [place] (SOLU-MEDRO 00 :00 1 dose, On Me dical L (PF)) 01/01/23 Branch injection at 1815, 60 mg Routine methylPREDN 3-0 3- No [id number] 60mg U nivers ISolone sod 01-02 ity of succ 00:15: 23:15 [place] (SOLU-MEDRO 00 :00 Medical L (PF)) Branch injection 60 mg methylPREDN 3-0 3- No [id number] 60mg 60 mg, Univers ISolone sod 01-02 Intramuscu i ty of succ 00:15: 23:15 lar, ONCE, [place] (SOLU-MEDRO 00 :00 1 dose, On Me dical L (PF)) 01/01/23 Branch injection at 1815, 60 mg Routine esomeprazol 3-0 2023- No 20mg Take 20 mg Univers e 20 mg 01-01 by mouth ity of capsule 17:00: 00:00 daily [place] 20 :00 before a Medical meal. Branch esomeprazol 2023-0 2023- No 20mg Take 20 mg Univers e 20 mg 01-01 by mouth ity of capsule 17:00: 00:00 daily [place] 20 :00 before a Medical meal. Branch docosahexae 3-0 Yes 1000mg Take 1,000 Univers noic 2-01 mg by ity of acid/epa 16:41: mouth [place] (FISH OIL 17 daily. Medical ORAL) Branch docosahexae 2022-0 Yes 1000mg Take 1,000 Univers noic 2-01 mg by ity of acid/epa 16:41: mouth [place] (FISH OIL 17 daily. Medical ORAL) Branch metoprolol 2022-0 Yes [id number] 25mg Take 1 U nivers succinate 2-01 tablet by ity o f XL 25 mg 24 00:00: mouth in [place] hr tablet 00 the Medical morning. Branch amitriptyli 2022-0 Yes [id number] 25mg Take 1 U nivers ne 25 mg 2-01 tablet by ity of tablet 00:00: mouth at [place] 00 bedtime. Medical Branch benzonatate 2022-0 Yes [id number] 100mg Take 1 Univers (TESSALON 2-01 capsule by ity of PERLES) 100 00:00: mouth [place] mg capsule 00 every 8 Medica l (eight) Branch hours as needed for Cough. cetirizine 2022-0 Yes [id number] 10mg Take 1 U nivers 10 mg 2-01 tablet by ity of tablet 00:00: mouth in [place] 00 the Medical morning. Branch diclofenac 2022-0 Yes [id number] 75mg Take 1 Univers 75 mg EC 2- 9102 tablet by ity of tablet 00:00: mouth 2 [place] 00 (two) Medical times Branch daily with meals as needed for Pain. Use sparingly due to Side effects metoprolol 2022-0 Yes [id number] 25mg Take 1 U nivers succinate 2-01 tablet by ity o f XL 25 mg 24 00:00: mouth in [place] hr tablet 00 the Medical morning. Branch amitriptyli 2022-0 Yes [id number] 25mg Take 1 U nivers ne 25 mg 2-01 tablet by ity of tablet 00:00: mouth at [place] 00 bedtime. Medical Branch benzonatate 2022-0 Yes [id number] 100mg Take 1 Univers (TESSALON 2-01 capsule by ity of PERLES) 100 00:00: mouth [place] mg capsule 00 every 8 Medica l (eight) Branch hours as needed for Cough. cetirizine 2022-0 Yes [id number] 10mg Take 1 U nivers 10 mg 2-01 tablet by ity of tablet 00:00: mouth in [place] 00 the Medical morning. Branch diclofenac 2022-0 Yes [id number] 75mg Take 1 Univers 75 mg EC 2- 9102 tablet by ity of tablet 00:00: mouth 2 00 (two) Medical times Branch daily with meals as needed for Pain. Use sparingly due to Side effects metoprolol 2022-0 Yes [id number] 25mg Take 1 U nivers succinate 2-01 tablet by ity o f XL 25 mg 24 00:00: mouth in [place] hr tablet 00 the Medical morning. Branch metoprolol 2022-0 Yes [id number] 25mg Take 1 U nivers succinate 2-01 tablet by ity o f XL 25 mg 24 00:00: mouth in [place] hr tablet 00 the Medical morning. Branch metoprolol 2022-0 Yes [id number] 25mg Take 1 U nivers succinate 2-01 tablet by ity o f XL 25 mg 24 00:00: mouth in [place] hr tablet 00 the Medical morning. Branch metoprolol 2022-0 Yes [id number] 25mg Take 1 U nivers succinate 2-01 tablet by ity o f XL 25 mg 24 00:00: mouth in [place] hr tablet 00 the Medical morning. Branch metoprolol 2022-0 Yes [id number] 25mg Take 1 U nivers succinate 2-01 tablet by ity o f XL 25 mg 24 00:00: mouth in [place] hr tablet 00 the Medical morning. Branch metoprolol 2022-0 Yes [id number] 25mg Take 1 U nivers succinate 2-01 tablet by ity o f XL 25 mg 24 00:00: mouth in [place] hr tablet 00 the Medical morning. Branch metoprolol 2022-0 Yes [id number] 25mg Take 1 U nivers succinate 2-01 tablet by ity o f XL 25 mg 24 00:00: mouth in [place] hr tablet 00 the Medical morning. Branch metoprolol 2022-0 Yes [id number] 25mg Take 1 U nivers succinate 2-01 tablet by ity o f XL 25 mg 24 00:00: mouth in [place] hr tablet 00 the Medical morning. Branch amitriptyli 2022-0 2022- No [id number] 25mg Take 1 Univers ne 25 mg 2-12 02-05 tablet by ity o f tablet 00:00: 00:00 mouth at [place] 00 :00 bedtime. Medical Branch benzonatate 2022- No [id number] 100mg Take 1 Univers (TESSALON 201-05 capsule by ity of ROBERTO) 100 00:00: 00:00 [place] mg capsule 00 :00 every 8 Medica l (eight) Branch hours as needed for Cough. cetirizine 2022- No [id number] 10mg Take 1 Univers 10 mg 01-01 tablet by ity of tablet 00:00: 00:00 mouth in [place] 00 :00 the Medical morning. Branch diclofenac 2022- No [id number] 75mg Take 1 Univers 75 mg EC 01-01 9102 tablet by ity o f tablet 00:00: 00:00 mouth 2 [place] 00 :00 (two) Medical times Branch daily with meals as needed for Pain. Use sparingly due to Side effects gabapentin 2021-12 Yes [id number] 400mg Take 1 Univers 400 mg 2-08 capsule by ity of capsule 00:00: mouth at [place] 00 bedtime. Medical Branch gabapentin 2021-12 Yes [id number] 400mg Take 1 Univers 400 mg 2-08 capsule by ity of capsule 00:00: mouth at [place] 00 bedtime. Medical Branch gabapentin 2021-12- No [id number] 400mg Take 1 Univers 400 mg 2-07 02- capsule by ity of capsule 00:00: 00:00 mouth at [place] 00 :00 bedtime. Medical Branch gabapentin 2021-12- No [id number] 400mg Take 1 Univers 400 mg 2-07 02- capsule by ity of capsule 00:00: 00:00 mouth at [place] 00 :00 bedtime. Medical Branch atorvastati 2021-12- No 80mg Take 80 mg Univers n calcium 0-12 10-12 by mouth. ity of (ATORVASTAT 09:00: 00:00 [place] IN ORAL) 28 :00 Medical Branch atorvastati 2021-12- No 80mg Take 80 mg Univers n calcium 0-12 10-12 by mouth. ity of (ATORVASTAT 09:00: 00:00 [place] IN ORAL) 28 :00 Medical Branch atorvastati 2021-12- No 80mg Take 80 mg Univers n calcium 0-12 10-12 by mouth. ity of (ATORVASTAT 09:00: 00:00 [place] IN ORAL) 28 :00 Medical Branch atorvastati 2021-12 Yes [id number] 80mg Take 1 Univers n 80 mg 0-12 tablet by ity of tablet 00:00: mouth [place] 00 every Medical evening. Branch atorvastati 2021-12 Yes [id number] 80mg Take 1 Univers n 80 mg 0-12 tablet by ity of tablet 00:00: mouth [place] 00 every Medical evening. Branch atorvastati 2021-12 Yes [id number] 80mg Take 1 Univers n 80 mg 0-12 tablet by ity of tablet 00:00: mouth [place] 00 every Medical evening. Branch atorvastati 2021-12 Yes [id number] 80mg Take 1 Univers n 80 mg 0-12 tablet by ity of tablet 00:00: mouth [place] 00 every Medical evening. [place] atorvastati 2021-12 Yes [id number] 80mg Take 1 Univers n 80 mg 0-12 tablet by ity of tablet 00:00: mouth [place] 00 every Medical evening. [place] atorvastati 2021-12 Yes [id number] 80mg Take 1 Univers n 80 mg 0-12 tablet by ity of tablet 00:00: mouth [place] 00 every Medical evening. [place] atorvastati 2021-12 Yes [id number] 80mg Take 1 Univers n 80 mg 0-12 tablet by ity of tablet 00:00: mouth [place] 00 every Medical evening. [place] atorvastati 2021-12 Yes [id number] 80mg Take 1 Univers n 80 mg 0-12 tablet by ity of tablet 00:00: mouth [place] 00 every Medical evening. Branch atorvastati 2021-12 Yes [id number] 80mg Take 1 Univers n 80 mg 0-12 tablet by ity of tablet 00:00: mouth [place] 00 every Medical evening. [place] atorvastati 2021-12 Yes [id number] 80mg Take 1 Univers n 80 mg 0-12 tablet by ity of tablet 00:00: mouth [place] 00 every Medical evening. [place] atorvastati 2021-12 Yes [id number] 80mg Take 1 Univers n 80 mg 0-12 tablet by ity of tablet 00:00: mouth [place] 00 every Medical evening. [place] atorvastati 2021-12 Yes [id number] 80mg Take 1 Univers n 80 mg 0-12 tablet by ity of tablet 00:00: mouth [place] 00 every Medical evening. Branch atorvastati 2021-3- No [id number] 80mg Take 1 Univers n 80 mg 0-12 02-22 tablet by ity of tablet 00:00: 00:00 mouth [place] 00 :00 every Medical evening. Branch docosahexae 2021-0 Yes 1000mg Take 1,000 Univers noic 4-11 mg by ity of acid/epa 22:13: mouth [place] (FISH OIL 31 daily. Medical ORAL) Branch docosahexae 2021-0 Yes 1000mg Take 1,000 Univers noic 4-11 mg by ity of acid/epa 22:13: mouth [place] (FISH OIL 31 daily. Medical ORAL) Branch docosahexae 2021-0 Yes 1000mg Take 1,000 Univers noic 4-11 mg by ity of acid/epa 22:13: mouth [place] (FISH OIL 31 daily. Medical ORAL) Branch docosahexae 2021-0 Yes 1000mg Take 1,000 Univers noic 4-11 mg by ity of acid/epa 22:13: mouth [place] (FISH OIL 31 daily. Medical ORAL) Branch docosahexae 2021-0 Yes 1000mg Take 1,000 Univers noic 4-11 mg by ity of acid/epa 22:13: mouth [place] (FISH OIL 31 daily. Medical ORAL) Branch docosahexae 2021-0 Yes 1000mg Take 1,000 Univers noic 4-11 mg by ity of acid/epa 22:13: mouth [place] (FISH OIL 31 daily. Medical ORAL) Branch docosahexae 2021-0 Yes 1000mg Take 1,000 Univers noic 4-11 mg by ity of acid/epa 22:13: mouth [place] (FISH OIL 31 daily. Medical ORAL) Branch docosahexae 2021-0 Yes 1000mg Take 1,000 Univers noic 4-11 mg by ity of acid/epa 22:13: mouth [place] (FISH OIL 31 daily. Medical ORAL) Branch docosahexae 2-0 Yes 1000mg Take 1,000 Univers noic 4-11 mg by ity of acid/epa 22:13: mouth [place] (FISH OIL 31 daily. Medical ORAL) Branch docosahexae 2-0 Yes 1000mg Take 1,000 Univers noic 4-11 mg by ity of acid/epa 22:13: mouth [place] (FISH OIL 31 daily. Medical ORAL Branch metoprolol Yes 25mg Take 25 mg U nivers succinate 4-09 by mouth ity of XL 25 mg 24 00:00: [place]. [place] hr tablet [place] [facility] metoprolol Yes 25mg Take 25 mg U nivers succinate 4-09 by mouth ity of XL 25 mg 24 00:00: [place]. [place] [facility] metoprolol Yes 25mg Take 25 mg U nivers succinate 4-09 by mouth ity of XL 25 mg 24 00:00: [place]. [place] hr tablet [facility] metoprolol Yes 25mg Take 25 mg U nivers succinate 4-09 by mouth ity of XL 25 mg 24 00:00: [place]. [place] hr tablet [facility] metoprolol Yes 25mg Take 25 mg U nivers succinate 4-09 by mouth ity of XL 25 mg 24 00:00: [place]. [place] hr tablet [place] [facility] metoprolol Yes 25mg Take 25 mg U nivers succinate 4-09 by mouth ity of XL 25 mg 24 00:00: [place]. [place] hr tablet [facility] metoprolol Yes 25mg Take 25 mg U nivers succinate 4-09 by mouth ity of XL 25 mg 24 00:00: [place]. [place] hr tablet [facility] metoprolol Yes 25mg Take 25 mg U nivers succinate 4-09 by mouth ity of XL 25 mg 24 00:00: [place]. [place] hr tablet [place] [facility] metoprolol Yes 25mg Take 25 mg U nivers succinate 4-09 by mouth ity of XL 25 mg 24 00:00: [place]. [place] hr tablet [place] [facility] metoprolol Yes 25mg Take 25 mg U nivers succinate 4-09 by mouth ity of XL 25 mg 24 00:00: [place]. [place] hr tablet [facility] Branch metoprolol 3- No 25mg Take 25 mg Univers succinate 4-09 01-01 by mouth ity o f XL 25 mg 24 00:00: 00:00 daily. [place] hr tablet 00 :00 Medical Branch metoprolol 0 3- No 25mg Take 25 mg Univers succinate 03-09 by mouth ity o f XL 25 mg 24 00:00: 00:00 daily. [place] hr tablet 00 :00 Medical Branch atorvastati 0 Yes 80mg Take 80 mg Univers n calcium 1-05 by mouth. ity o f (ATORVASTAT 13:31: [place] IN ORAL) 39 Medical Branch prasugreL 2020-12- No [id number] 10mg Take 1 U nivers 10 mg 2-31 12-27 tablet by ity of tablet 00:00: 05:59 mouth [place] 00 :00 daily for Medical 360 days. Branch prasugreL 2020-2021- No [id number] 10mg Take 1 U nivers 10 mg 2-31 12-27 tablet by ity of tablet 00:00: 05:59 mouth [place] 00 :00 daily for Medical 360 days. Branch prasugreL 2020-12- No [id number] 10mg Take 1 U nivers 10 mg 2-31 12-27 tablet by ity of tablet 00:00: 05:59 mouth [place] 00 :00 daily for Medical 360 days. Branch prasugreL 2020-12- No [id number] 10mg Take 1 U nivers 10 mg 2-31 12-27 tablet by ity of tablet 00:00: 05:59 mouth [place] 00 :00 daily for Medical 360 days. Branch prasugreL 2020-12- No [id number] 10mg Take 1 U nivers 10 mg 2-31 12-27 tablet by ity of tablet 00:00: 05:59 mouth [place] 00 :00 daily for Medical 360 days. Branch prasugreL 2020-12- No [id number] 10mg Take 1 U nivers 10 mg 2-31 12-27 tablet by ity of tablet 00:00: 05:59 mouth [place] 00 :00 daily for Medical 360 days. Branch prasugreL 2020-12- No [id number] 10mg Take 1 U nivers 10 mg 2-31 12-27 tablet by ity of tablet 00:00: 05:59 mouth [place] 00 :00 daily for Medical 360 days. Branch prasugreL 2020-12- No [id number] 10mg Take 1 U nivers 10 mg 2-31 12-27 tablet by ity of tablet 00:00: 05:59 mouth [place] 00 :00 daily for Medical 360 days. Branch prasugreL 2020-12- No [id number] 10mg Take 1 U nivers 10 mg 2-31 12-27 tablet by ity of tablet 00:00: 05:59 mouth [place] 00 :00 daily for Medical 360 days. Branch prasugreL 2020-12- No [id number] 10mg Take 1 U nivers 10 mg 2- 12-27 tablet by ity of tablet 00:00: 05:59 mouth [place] 00 :00 daily for Medical 360 days. Branch esomeprazol 2020-12 Yes 20mg Take 20 mg Univers e (NEXIUM) 2-30 by mouth ity o f 20 mg 13:11: daily [place] capsule 18 before a Medical meal. Branch esomeprazol 2020-12 Yes 20mg Take 20 mg Univers e (NEXIUM) 2-30 by mouth ity o f 20 mg 13:11: daily [place] capsule 18 before a Medical meal. Branch esomeprazol 2020-12 Yes 20mg Take 20 mg Univers e (NEXIUM) 2-30 by mouth ity o f 20 mg 13:11: daily [place] capsule 18 before a Medical meal. Branch esomeprazol 2020-12 Yes 20mg Take 20 mg Univers e (NEXIUM) 2-30 by mouth ity o f 20 mg 13:11: daily [place] capsule 18 before a Medical meal. Branch esomeprazol 2020-12 Yes 20mg Take 20 mg Univers e (NEXIUM) 2-30 by mouth ity o f 20 mg 13:11: daily [place] capsule 18 before a Medical meal. Branch esomeprazol 2020-12 Yes 20mg Take 20 mg Univers e (NEXIUM) 2-30 by mouth ity o f 20 mg 13:11: daily [place] capsule 18 before a Medical meal. Branch esomeprazol 2020-12 Yes 20mg Take 20 mg Univers e (NEXIUM) 2-30 by mouth ity o f 20 mg 13:11: daily [place] capsule 18 before a Medical meal. Branch esomeprazol 2020-12 Yes 20mg Take 20 mg Univers e (NEXIUM) 2-30 by mouth ity o f 20 mg 13:11: daily [place] capsule 18 before a Medical meal. Branch esomeprazol 2020-12 Yes 20mg Take 20 mg Univers e (NEXIUM) 2-30 by mouth ity o f 20 mg 13:11: daily [place] capsule 18 before a Medical meal. Branch esomeprazol 2020-12 Yes 20mg Take 20 mg Univers e (NEXIUM) 2-30 by mouth ity o f 20 mg 13:11: daily [place] capsule 18 before a Medical meal. Branch COVID-2020-12 Yes [id number] .25mL 0.25 mL by Univers vaccine,mRN 2-30 100 [facility] it y of A-PF, 00:00: lar route [place] MODERNA, 00 once prior Medic al EUA, to Branch injection discharge for Give vaccine prior to discharge. COVID-2020-12 Yes [id number] .25mL 0.25 mL by Univers vaccine,mRN 2-30 100 [facility] it y of A-PF, 00:00: lar route [place] MODERNA, 00 once prior Medic al EUA, to Branch injection discharge for Give vaccine prior to discharge. COVID-2020-12 Yes [id number] .25mL 0.25 mL by Univers vaccine,mRN 2-30 100 [facility] it y of A-PF, 00:00: lar route [place] MODERNA, 00 once prior Medic al EUA, to Branch injection discharge for Give vaccine prior to discharge. COVID-2020-12 Yes [id number] .25mL 0.25 mL by Univers vaccine,mRN 2-30 100 [facility] it y of A-PF, 00:00: lar route [place] MODERNA, 00 once prior Medic al EUA, to Branch injection discharge for Give vaccine prior to discharge. COVID-2020-12 Yes [id number] .25mL 0.25 mL by Univers vaccine,mRN 2-30 100 [facility] it y of A-PF, 00:00: lar route [place] MODERNA, 00 once prior Medic al EUA, to Branch injection discharge for Give vaccine prior to discharge. COVID-2020-12 Yes [id number] .25mL 0.25 mL by Univers vaccine,mRN 2-30 100 [facility] it y of A-PF, 00:00: lar route [place] MODERNA, 00 once prior Medic al EUA, to Branch injection discharge for Give vaccine prior to discharge. COVID-2020-12 Yes [id number] .25mL 0.25 mL by Univers vaccine,mRN 2-30 100 [facility] it y of A-PF, 00:00: lar route [place] MODERNA, 00 once prior Medic al EUA, to Branch injection discharge for Give vaccine prior to discharge. COVID-2020-12 Yes [id number] .25mL 0.25 mL by Univers vaccine,mRN 2-30 100 [facility] it y of A-PF, 00:00: lar route [place] MODERNA, 00 once prior Medic al EUA, to Branch injection discharge for Give vaccine prior to discharge. COVID-2020-12 Yes [id number] .25mL 0.25 mL by Univers vaccine,mRN 2-30 100 [facility] it y of A-PF, 00:00: lar route [place] MODERNA, 00 once prior Medic al EUA, to Branch injection discharge for Give vaccine prior to discharge. COVID-2020-12 Yes [id number] .25mL 0.25 mL by Univers vaccine,mRN 2-30 100 [facility] y of A-PF, 00:00: lar route [place] MODERNA, 00 once prior Medic al EUA, to Branch injection discharge for Give vaccine prior to discharge. COVID-2020-12- No [id number] .25mL 0.25 mL by Univers vaccine, 100 Intramus[facility] i ty of A-PF, 00:00: 00:00 lar route [place] MODERNA, 00 :00 once prior Medic al EUA, to Branch injection discharge for Give vaccine prior to discharge. COVID-2020-12- No [id number] .25mL 0.25 mL by Univers vaccine,mRN 2-30 01-01 100 Intr[facility] i ty of A-PF, 00:00: 00:00 lar route [place] MODERNA, 00 :00 once prior Medic al EUA, to Branch injection discharge for Give vaccine prior to discharge. aspirin 81 2020-12- No [id number] 81mg Take 81 mg Univers mg Cap 11-25 100 by mouth ity of 00:00: 05:59 daily for [place] 00 :00 360 days. Medical Branch aspirin 81 2020-12- No [id number] 81mg Take 81 mg Univers mg Cap -29 11- 100 by mouth ity of 00:00: 05:59 daily for [place] 00 :00 360 days. Medical Branch aspirin 81 2020-12- No [id number] 81mg Take 81 mg Univers mg Cap -29 11- 100 by mouth ity of 00:00: 05:59 daily for [place] 00 :00 360 days. Medical Branch aspirin 81 2020-12- No [id number] 81mg Take 81 mg Univers mg Cap -29 11- 100 by mouth ity of 00:00: 05:59 daily for [place] 00 :00 360 days. Medical Branch aspirin 81 2020-12- No [id number] 81mg Take 81 mg Univers mg Cap -29 11- 100 by mouth ity of 00:00: 05:59 daily for [place] 00 :00 360 days. Medical Branch aspirin 81 2020-12- No [id number] 81mg Take 81 mg Univers mg Cap -29 11- 100 by mouth ity of 00:00: 05:59 daily for [place] 00 :00 360 days. Medical Branch aspirin 81 2020-12- No [id number] 81mg Take 81 mg Univers mg Cap -29 11- 100 by mouth ity of 00:00: 05:59 daily for [place] 00 :00 360 days. Medical Branch aspirin 81 2020-12- No [id number] 81mg Take 81 mg Univers mg Cap -11-25 100 by mouth ity of 00:00: 05:59 daily for [place] 00 :00 360 days. Medical Branch aspirin 81 2020-12- No [id number] 81mg Take 81 mg Univers mg Cap -29 11- 100 by mouth ity of 00:00: 05:59 daily for [place] 00 :00 360 days. Medical Branch aspirin 81 2020-12- No [id number] 81mg Take 81 mg Univers mg Cap -29 11- 100 by mouth ity of 00:00: 05:59 daily for [place] 00 :00 360 days. Medical Branch atorvastati 2020-12 Yes Univer s n 80 mg 2-10 ity of tablet 00:00: [place] 00 Medical Branch atorvastati 2020-12- No Unive rs n 80 mg 2-10 10-12 ity of tablet 00:00: 00:00 [place] 00 :00 Medical Branch atorvastati 2020-12- No Unive rs n 80 mg 2-10 10-12 ity of tablet 00:00: 00:00 [place] 00 :00 Medical Branch atorvastati 2020-12- No Unive rs n 80 mg 2-10 10-12 ity of tablet 00:00: 00:00 [place] 00 :00 Medical Branch Immunizations Ordered Filled Immunization Date Status Comments [facility] e Immunization Name Name Influenza Virus 2022-10-01 Completed Universit y of Vaccine [facility] IM, 00:00:00 [place] Me dical Preserv and ABX Branch Free 6 MO-64 YRS Influenza Virus 2022-10-01 Completed Universit y of Vaccine [facility] IM, 00:00:00 [place] Me dical Preserv and ABX Branch Free 6 MO-64 YRS Influenza Virus 2022-10-01 Completed Universit y of Vaccine Quad IM, 00:00:00 [place] Me dical Preserv and ABX Branch Free 6 MO-64 YRS Influenza Virus 2022-10-01 Completed Universit y of Vaccine Quad IM, 00:00:00 [place] Me dical Preserv and ABX Branch Free 6 MO-64 YRS Influenza Virus 2022-10-01 Completed Universit y of Vaccine Quad IM, 00:00:00 [place] Me dical Preserv and ABX Branch Free 6 MO-64 YRS Influenza Virus 2022-10-01 Completed Universit y of Vaccine Quad IM, 00:00:00 [place] Me dical Preserv and ABX Branch Free 6 MO-64 YRS Influenza Virus 2022-10-01 Completed Universit y of Vaccine Quad IM, 00:00:00 [place] Me dical Preserv and ABX Branch Free 6 MO-64 YRS Influenza Virus 2022-10-01 Completed Universit y of Vaccine Quad IM, 00:00:00 [place] Me dical Preserv and ABX Branch Free 6 MO-64 YRS Influenza Virus 2022-10-01 Completed Universit y of Vaccine Quad IM, 00:00:00 [place] Me dical Preserv and ABX Branch Free 6 MO-64 YRS Influenza Virus 2022-10-01 Completed Universit y of Vaccine Quad IM, 00:00:00 [place] Me dical Preserv and ABX Branch Free 6 MO-64 YRS Influenza Virus 2022-10-01 Completed Universit y of Vaccine Quad IM, 00:00:00 [place] Me dical Preserv and ABX Branch Free 6 MO-64 YRS Influenza Virus 2022-10-01 Completed Universit y of Vaccine Quad IM, 00:00:00 [place] Me dical Preserv and ABX Branch Free 6 MO-64 YRS Influenza Virus 2021-11-29 Completed Universit y of Vaccine Quad IM, 00:00:00 [place] Me dical Preserv and ABX Branch Free 6 MO-64 YRS SARS-COV-2 COVID-19 2021-11-29 Completed Unive rsity of MODERNA VACCINE 00:00:[address] [facility] [place] ical Branch Influenza Virus 2021-11-29 Completed Universit y of Vaccine Quad IM, 00:00:[address] [facility] dical Preserv and ABX Branch Free 6 MO-64 YRS SARS-COV-2 COVID-19 2021-11-29 Completed Unive rsity of MODERNA 12+ YRS 00:00:00 [facility] VACCINE Branch Influenza Virus 2021-11-29 Completed Universit y of Vaccine Quad IM, 00:00:[address] [facility] dical Preserv and ABX Branch Free 6 MO-64 YRS SARS-COV-2 COVID-19 2021-11-29 Completed Unive rsity of MODERNA 12+ YRS 00:00:00 [facility] VACCINE Branch Influenza Virus 2021-11-29 Completed Universit y of Vaccine Quad IM, 00:00:[address] [facility] dical Preserv and ABX Branch Free 6 MO-64 YRS SARS-COV-2 COVID-19 2021-11-29 Completed Unive rsity of MODERNA 12+ YRS 00:00:00 [facility] VACCINE Branch Influenza Virus 2021-11-29 Completed Universit y of Vaccine Quad IM, 00:00:[address] [facility] dical Preserv and ABX Branch Free 6 MO-64 YRS SARS-COV-2 COVID-19 2021-11-29 Completed Unive rsity of MODERNA 12+ YRS 00:00:00 [facility] VACCINE Branch Influenza Virus 2021-11-29 Completed Universit y of Vaccine Quad IM, 00:00:[address] [facility] dical Preserv and ABX Branch Free 6 MO-64 YRS SARS-COV-2 COVID-19 2021-11-29 Completed Unive rsity of MODERNA 12+ YRS 00:00:00 [facility] VACCINE Branch Influenza Virus 2021-11-29 Completed Universit y of Vaccine Quad IM, 00:00:00 [place] Me dical Preserv and ABX Branch Free 6 MO-64 YRS SARS-COV-2 COVID-19 2021-11-29 Completed Unive rsity of MODERNA 12+ YRS 00:00:00 [facility] VACCINE Branch Influenza Virus 2021-11-29 Completed Universit y of Vaccine Quad IM, 00:00:[address] [facility] dical Preserv and ABX Branch Free 6 MO-64 YRS SARS-COV-2 COVID-19 2021-11-29 Completed Unive rsity of MODERNA 12+ YRS 00:00:00 [facility] VACCINE Branch Influenza Virus 2021-11-29 Completed Universit y of Vaccine Quad IM, 00:00:[address] [facility] dical Preserv and ABX Branch Free 6 MO-64 YRS SARS-COV-2 COVID-19 2021-11-29 Completed Unive rsity of MODERNA 12+ YRS 00:00:00 [facility] VACCINE Branch Influenza Virus 2021-11-29 Completed Universit y of Vaccine Quad IM, 00:00:[address] [facility] dical Preserv and ABX Branch Free 6 MO-64 YRS SARS-COV-2 COVID-19 2021-11-29 Completed Unive rsity of MODERNA 12+ YRS 00:00:00 [facility] VACCINE Branch Influenza Virus 2021-11-29 Completed Universit y of Vaccine Quad IM, 00:00:[address] [facility] dical Preserv and ABX Branch Free 6 MO-64 YRS SARS-COV-2 COVID-19 2021-11-29 Completed Unive rsity of MODERNA 12+ YRS 00:00:00 [facility] VACCINE Branch Influenza Virus 2021-11-29 Completed Universit y of Vaccine Quad IM, 00:00:[address] [facility] dical Preserv and ABX Branch Free 6 MO-64 YRS SARS-COV-2 COVID-19 2021-11-29 Completed Unive rsity of MODERNA 12+ YRS 00:00:00 [facility] VACCINE Branch Influenza Virus 2021-11-29 Completed Universit y of Vaccine Quad IM, 00:00:00 [place] Me dical Preserv and ABX Branch Free 6 MO-64 YRS SARS-COV-2 COVID-19 2021-11-29 Completed Unive rsity of MODERNA 12+ YRS 00:00:00 [facility] VACCINE Branch Influenza Virus 2021-11-29 Completed Universit y of Vaccine Quad IM, 00:00:[address] [facility] dical Preserv and ABX Branch Free 6 MO-64 YRS SARS-COV-2 COVID-19 2021-11-29 Completed Unive rsity of MODERNA 12+ YRS 00:00:00 [facility] VACCINE Branch Influenza Virus 2021-11-29 Completed Universit y of Vaccine Quad IM, 00:00:[address] [facility] dical Preserv and ABX Branch Free 6 MO-64 YRS SARS-COV-2 COVID-19 2021-11-29 Completed Unive rsity of MODERNA 12+ YRS 00:00:00 [facility] VACCINE Branch Influenza Virus 2021-11-29 Completed Universit y of Vaccine Quad IM, 00:00:[address] [facility] dical Preserv and ABX Branch Free 6 MO-64 YRS SARS-COV-2 COVID-19 2021-11-29 Completed Unive rsity of MODERNA 12+ YRS 00:00:00 [facility] VACCINE Branch Influenza Virus 2021-11-29 Completed Universit y of Vaccine Quad IM, 00:00:[address] [facility] dical Preserv and ABX Branch Free 6 MO-64 YRS SARS-COV-2 COVID-19 2021-11-29 Completed Unive rsity of MODERNA 12+ YRS 00:00:00 [facility] VACCINE Branch Influenza Virus 2021-11-29 Completed Universit y of Vaccine Quad IM, 00:00:[address] [facility] dical Preserv and ABX Branch Free 6 MO-64 YRS SARS-COV-2 COVID-19 2021-11-29 Completed Unive rsity of MODERNA 12+ YRS 00:00:00 [facility] VACCINE Branch Influenza Virus 2021-11-29 Completed Universit y of Vaccine Quad IM, 00:00:[address] [facility] dical Preserv and ABX Branch Free 6 MO-64 YRS SARS-COV-2 COVID-19 2021-11-29 Completed Unive rsity of MODERNA 12+ YRS 00:00:[address] [facility] [place] VACCINE Branch Influenza Virus 2021-11-29 Completed Universit y of Vaccine Quad IM, 00:00:[address] [facility] dical Preserv and ABX Branch Free 6 MO-64 YRS SARS-COV-2 COVID-19 2021-11-29 Completed Unive rsity of MODERNA 12+ YRS 00:00:00 [facility] VACCINE Branch SARS-COV-2 COVID-19 2021-03-20 Completed Unive rsity of VACCINE - (MODERNA) 00:00:00 [facility] SARS-COV-2 COVID-19 2021-03-20 Completed Unive rsity of VACCINE - (MODERNA) 00:00:00 [facility] SARS-COV-2 COVID-19 2021-03-20 Completed Unive rsity of VACCINE - (MODERNA) 00:00:00 [facility] SARS-COV-2 COVID-19 2021-03-20 Completed Unive rsity of VACCINE - (MODERNA) 00:00:00 [facility] SARS-COV-2 COVID-19 2021-03-20 Completed Unive rsity of VACCINE - (MODERNA) 00:00:00 [facility] SARS-COV-2 COVID-19 2021-03-20 Completed Unive rsity of VACCINE - (MODERNA) 00:00:00 [facility] SARS-COV-2 COVID-19 2021-03-20 Completed Unive rsity of VACCINE - (MODERNA) 00:00:00 [facility] SARS-COV-2 COVID-19 2021-03-20 Completed Unive rsity of VACCINE - (MODERNA) 00:00:00 [facility] SARS-COV-2 COVID-19 2021-03-20 Completed Unive rsity of VACCINE - (MODERNA) 00:00:00 [facility] SARS-COV-2 COVID-19 2021-03-20 Completed Unive rsity of VACCINE - (MODERNA) 00:00:00 [facility] SARS-COV-2 COVID-19 2021-03-20 Completed Unive rsity of VACCINE - (MODERNA) 00:00:00 [facility] SARS-COV-2 COVID-19 2021-03-20 Completed Unive rsity of VACCINE - (MODERNA) 00:00:00 [facility] SARS-COV-2 COVID-19 2021-02-20 Completed Unive rsity of VACCINE - (MODERNA) 00:00:00 [facility] SARS-COV-2 COVID-19 2021-02-20 Completed Unive rsity of VACCINE - (MODERNA) 00:00:00 [facility] SARS-COV-2 COVID-19 2021-02-20 Completed Unive rsity of VACCINE - (MODERNA) 00:00:00 [facility] SARS-COV-2 COVID-19 2021-02-20 Completed Unive rsity of VACCINE - (MODERNA) 00:00:00 [facility] SARS-COV-2 COVID-19 2021-02-20 Completed Unive rsity of VACCINE - (MODERNA) 00:00:00 [facility] SARS-COV-2 COVID-19 2021-02-20 Completed Unive rsity of VACCINE - (MODERNA) 00:00:00 [facility] SARS-COV-2 COVID-19 2021-02-20 Completed Unive rsity of VACCINE - (MODERNA) 00:00:00 [facility] SARS-COV-2 COVID-19 2021-02-20 Completed Unive rsity of VACCINE - (MODERNA) 00:00:00 [facility] SARS-COV-2 COVID-19 2021-02-20 Completed Unive rsity of VACCINE - (MODERNA) 00:00:00 [facility] SARS-COV-2 COVID-19 2021-02-20 Completed Unive rsity of VACCINE - (MODERNA) 00:00:00 [facility] SARS-COV-2 COVID-19 2021-02-20 Completed Unive rsity of VACCINE - (MODERNA) 00:00:00 [facility] SARS-COV-2 COVID-19 2021-02-20 Completed Unive rsity of VACCINE - (MODERNA) 00:00:00 [facility] Vital Signs Vital Name Observation Time Observation Value Comments Source Systolic blood 2023-05-19 19:11:00 129 mm[Hg] Univer sity of pressure [facility] Diastolic blood 2023-05-19 19:11:00 83 mm[Hg] Unive rsity of pressure [place] [facility] Heart rate 2023-05-19 19:11:00 77 /min [facility] [place] [facility] Respiratory rate 2023-05-19 19:11:00 18 /min [facility] ers[facility] [place] [facility] Oxygen saturation in 2023-05-19 19:11:00 98 /min University of Arterial blood by [facility] Pulse oximetry Branch Body temperature 2023-05-19 16:09:00 36.61 Jaelyn [facility] ers[facility] [place] [facility] Body height 2023-05-19 16:09:00 175.3 cm [facility] [place] [facility] Body weight 2023-05-19 16:09:00 89.812 kg [facility] [place] [facility] BMI 2023-05-19 16:09:00 29.24 kg/m2 [facility] [place] [facility] Systolic blood 2023-03-12 20:00:00 116 mm[Hg] Univer sity of pressure [place] [facility] Diastolic blood 2023-03-12 20:00:00 76 mm[Hg] Unive rsity of pressure [place] [facility] Heart rate 2023-03-12 20:00:00 76 /min [facility] [place] [facility] Respiratory rate 2023-03-12 20:00:00 16 /min Univ ersity [facility] [place] [facility] Oxygen saturation in 2023-03-12 20:00:00 96 /min University of Arterial blood by [facility] Pulse oximetry Branch Body temperature 2023-03-12 16:08:00 36.78 Jaelyn [facility] ers[facility] [place] [facility] Body weight 2023-03-12 16:08:00 87.091 kg [facility] [place] [facility] BMI 2023-03-12 16:08:00 28.35 kg/m2 [facility] [place] [facility] Systolic blood 2023-01-07 21:55:00 137 mm[Hg] Univer sity of pressure [place] [facility] Diastolic blood 2023-01-07 21:55:00 76 mm[Hg] Unive rsity of pressure [place] [facility] Heart rate 2023-01-07 21:55:00 77 /min [facility] [place] [facility] Body temperature 2023-01-07 21:55:00 36.39 Jaelyn Univ ersity of [place] [facility] Respiratory rate 2023-01-07 21:55:00 18 /min Univ ersity of [place] [facility] Oxygen saturation in 2023-01-07 21:55:00 94 /min University of Arterial blood by [facility] Pulse oximetry Branch Body weight 2023-01-07 09:32:00 87.499 kg [facility] [place] [facility] BMI 2023-01-07 09:32:00 28.49 kg/m2 [facility] [place] [facility] Body height 2023-01-05 21:34:00 175.3 cm [facility] [place] [facility] Systolic blood 2023-01-01 22:39:00 126 mm[Hg] Univer sity of pressure [place] [facility] Diastolic blood 2023-01-01 22:39:00 81 mm[Hg] Unive rsity of pressure [place] [facility] Heart rate 2023-01-01 22:39:00 83 /min [facility] [place] [facility] Body temperature 2023-01-01 22:39:00 36.28 Jaelyn [facility] [place] [facility] Respiratory rate 2023-01-01 22:39:00 18 /min [facility] [place] [facility] Body height 2023-01-01 22:39:00 175.3 cm [facility] [place] [facility] Body weight 2023-01-01 22:39:00 91.354 kg [facility] [place] [facility] BMI 2023-01-01 22:39:00 29.74 kg/m2 [facility] [place] [facility] Oxygen saturation in 2023-01-01 22:39:00 97 /min University of Arterial blood by [facility] Pulse oximetry Branch Systolic blood 2022-11-06 21:00:00 123 mm[Hg] Univer sity of pressure [place] [facility] Diastolic blood 2022-11-06 21:00:00 81 mm[Hg] Unive rsity of pressure [place] [facility] Heart rate 2022-11-06 20:58:00 95 /min [facility] [place] [facility] Body temperature 2022-11-06 20:58:00 36.78 Jaelyn [facility] [place] [facility] Respiratory rate 2022-11-06 20:58:00 18 /min [facility] [place] [facility] Body height 2022-11-06 20:58:00 175.3 cm [facility] [place] [facility] Body weight 2022-11-06 20:58:00 91.264 kg [facility] BMI 2022-11-06 20:58:00 29.71 kg/m2 [facility] Oxygen saturation in 2022-11-06 20:58:00 95 /min [facility] Arterial blood by [facility] Pulse oximetry Branch Systolic blood 2022-03-11 20:32:00 131 mm[Hg] Univer sity of pressure [facility] Diastolic blood 2022-03-11 20:32:00 83 mm[Hg] Unive [facility] Heart rate 2022-03-11 20:32:00 91 /min [facility] Respiratory rate 2022-03-11 20:32:00 19 /min [facility] Body height 2022-03-11 20:32:00 175.3 cm [facility] Body weight 2022-03-11 20:32:00 92.443 kg [facility] BMI 2022-03-11 20:32:00 30.10 kg/m2 [facility] Oxygen saturation in 2022-03-11 20:32:00 91 /min [facility] Arterial blood by [facility] Pulse oximetry [place] Procedures Procedure Date / Time Performing Clinician Source Performed CONSENT/REFUSAL FOR 2023-05-19 16:05:37 Doctor Unassigned, No Un [facility] DIAGNOSIS AND TREATMENT Name [facility] TROPONIN I 2023-03-12 19:06:00 Alex Rodriguez [facility] XR CHEST 1 VW 2023-03-12 16:38:35 Alex Rodriguez [facility] LIPASE 2023-03-12 16:22:00 Alex Rodriguez [facility] TROPONIN I 2023-03-12 16:22:00 Alex Rodriguez [facility] COMP. METABOLIC PANEL 2023-03-12 16:22:00 Alex Rodriguez [facility] ([id number]) [facility] CBC WITH DIFF 2023-03-12 16:22:00 Alex Rodriguez [facility] PROTHROMBIN TIME / INR 2023-03-12 16:22:00 Alex Rodriguez [facility] N-TERMINAL PRO-BNP 2023-03-12 16:22:00 Alex Rodriguez [facility] NM MYOCARDIUM PERFUSION 2023-01-07 19:14:00 Luann Serrano [facility] STRESS AND REST [facility] BASIC METABOLIC PANEL 2023-01-07 09:42:00 Theresa [facility] (NA, K, CL, CO2, Medical Branch GLUCOSE, BUN, CREATININE, CA) CBC WITH DIFF 2023-01-07 09:42:00 Theresa [facility] TROPONIN I 2023-01-06 18:00:00 [facility] TRANSTHORACIC ECHO (TTE) 2023-01-06 16:38:00 Amandeep Prather [facility] TROPONIN I 2023-01-06 10:21:00 Ernie Earlishan Siddiqui [facility] BASIC METABOLIC PANEL 2023-01-06 10:21:00 Earl Klein [facility] (NA, K, CL, CO2, [facility] GLUCOSE, BUN, CREATININE, CA) CBC WITH DIFF 2023-01-06 10:21:00 Ernie Earl Chen [facility] TROPONIN I 2023-01-06 01:24:00 Ernie Earl Chen [facility] XR CHEST 1 VW 2023-01-05 17:54:08 Singer [facility] LIPASE 2023-01-05 17:37:00 Singer [facility] MAGNESIUM 2023-01-05 17:37:00 Singer [facility] TROPONIN I 2023-01-05 17:37:00 Singer [facility] THYROID STIMULATING 2023-01-05 17:37:00 [facility] COMP. METABOLIC PANEL 2023-01-05 17:37:00 [id number] LIPID PANEL 2023-01-05 17:37:00 Earl Klein [facility] ([id number])(TOTAL Medical Branch CHOLESTEROL, TRIGLYCERIDES, HDL) CBC WITH DIFF 2023-01-05 17:37:00 Pj Morse o f [facility] N-TERMINAL PRO-BNP 2023-01-05 17:37:00 Pj Morse [facility] HB ECG ROUTINE & RHYTHM 2023-01-05 17:33:34 Pj Morse [facility] ASSIGNMENT OF BENEFITS 2022-11-06 20:40:02 Doctor Unassigned, No [facility] Encounters Start End Encounter Admission Attending Care Care Encounter Source Date/Time Date/Time Type Type Clinicians Facility Department ID 2023-05-22 Outpatient Cruz, STLMLC STLMLC [id number] Common 13:19:00 Aleks 15729 [facility] 2023-03-27 Outpatient Cruz, STLMLC STLMLC [id number] Common 10:36:00 Aleks 26478 [facility] 2023-02-25 Outpatient Cruz, STLMLC STLMLC [id number] Common 10:11:01 Aleks 67450 [facility] 2023-01-31 Outpatient Cruz, STLMLC STLMLC [id number] Common 10:43:00 Aleks 55658 [facility] 2022-12-05 Outpatient Cruz, STLMLC STLMLC [id number] Common 08:08:00 Aleks 13397 [facility] 2022-07-22 Outpatient Cruz, STLMLC STLMLC [id number] Common 14:38:01 Aleks 90242 [facility] 2022-07-10 Outpatient Cruz, STLMLC STLMLC [id number] Common 15:25:00 Aleks 44412 [facility] 2021-12-26 Outpatient Cruz, STLMLC STLMLC [id number] Common 14:22:41 Aleks 13673 [facility] 2021-12-26 Outpatient Cruz, STLMLC STLMLC [id number] Common 14:22:08 Aleks 15292 [facility] 2021-12-26 Outpatient Cruz, STLMLC STLMLC [id number] Common 12:33:53 Aleks 01831 [facility] 2021-12-26 Outpatient Cruz, STLMLC STLC [id number] Common 12:03:10 Aleks 05479 [facility] 2021-12-26 Outpatient Cruz, STLMLC STLC [id number] Common 12:01:17 Aleks 24712 [facility] 2021-12-26 Outpatient Cruz, STLMLC STLC [id number] Common 11:42:46 Aleks 06163 [facility] 2021-12-26 Outpatient Cruz, STLMLC STLC [id number] Common 11:16:20 Aleks 99156 [facility] 2021-12-26 Outpatient Cruz, STLC [facility] [id number] Common 11:01:34 Aleks 56863 [facility] 2023-06-11 2023-06-11 [facility] [id number] Univers 16:00:00 16:00:00 OLINDA [facility] 2023-05-28 2023-05-28 Outpatient R EDUARDA MADDOX [facility] [id number] Univers 12:00:00 12:00:00 EDUARDA MADDOX [facility] 2023-05-19 2023-05-19 Emergency X [facility] ERT [id number] Univers 11:12:00 [facility]:13[facility] 2023-05-19 Emergency [facility] [id number] Univers 11:12:00 14:13:00 Earl Lowry EARLE 350.1.13.10 i ty [facility] 4.2.7.2.686 [facility] [id number] [place] [address] Branch 2023-05-07 2023-05-07 Outpatient EDUARDA GONZALEZ [facility] [id number] Univers 15:30:00 15:30:00 EDUARDA MADDOX [facility] 2023-03-12 2023-03-12 Emergency X [facility] ERT [id number] Univers 11:09:00 15:32:00 ALEX ity [facility] 2023-03-12 2023-03-12 Emergency [facility] 1.2.840.114 [id number] Univers 11:09:00 15:32:00 Alex B GENO 350.1.13.10 i ty [place] [id number] [address] 2023-03-12 2023-03-12 Telephone [facility] 1.2.184.501 [id number] Univers 00:00:00 00:00:00 Amandeep LORA 350.1.13.10 it[place] [id number] Pr dic[address] 2023-02-14 2023-02-14 Refill [facility] 1.2.840.114 [id number] Univers 00:00:00 00:00:00 Amandeep LORA 350.1.13.10 [place] [id number] [address] 2023-02-14 2023-02-14 [facility] 1.2.840.114 [id number] Univers 00:00:00 00:00:00 Amandeep LORA 350.1.13.10 [place] [id number] [address] 2023-01-22 2023-01-22 Outpatient R CARIE [facility] [id number] Univers 16:20:00 16:20:00 ALEX ity [facility] 2023-01-22 2023-01-22 Telephone [facility] 1.2.210.295 [id number] Univers 00:00:00 00:00:00 Amandeep LORA 350.1.13.10 ity [facility] [place] [id number] Pr dical NAL 059 [facility] 2023-01-05 2023-01-07 Outpatient X MUNDO [facility] [place] [id number] Univers 11:29:00 16:58:00 EVENS ity [facility] 2023-01-05 2023-01-07 Emergency Pj Morse [facility] 1.2.840. 114 [id number] Univers 11:29:00 16:58:00 Evens Flower 350.1.13.10 ity [facility] [place] [id number] [facility] 081 [place] 2023-01-01 2023-01-01 Outpatient R EDUARDA MADDOX [facility] [id number] Univers 16:30:00 17:14:13 [facility]23-01-01 2023-01-01 Office Mariya [facility] 1.2.840.114 [id number] Univers 16:30:00 17:14:13 Visit Eduarda LORA 350.1.13.10 ity [place] [id number] Pr diclorraine DORSEY 044 [facility] 2022-12-17 2022-12-17 Outpatient R EMY [facility] [id number] Univers 14:00:00 14:00:00 MATEUS ity [facility] 2022-11-06 2022-11-06 Outpatient R EDUARDA MADDOX [facility] [id number] Univers 15:00:00 15:25:43 [facility] 2022-11-06 2022-11-06 Office Mariya [facility] 1.2.840.114 [id number] Univers 15:00:00 15:25:43 Visit Eduarda LORA 350.1.13.10 ity of [facility] [place] [phone] Pr dical NAL 044 [facility] 2022-11-06 2022-11-06 Orders Doctor DEXTER 1.2.840.114 [id number] Univers 00:00:00 00:00:00 Only Unassigned, KAMI 350.1.13.10 ity of [facility] 4.2.7.2.686 [place] [id number] [address] 2022-09-27 2022-09-27 [facility] 1.2.305.309 [id number] Univers 00:00:00 00:00:00 Sendrod LORA 350.1.13.10 it[place] [id number] Pr dical NAL 059 [facility] 2022-09-17 2022-09-17 [facility] 1.2.056.857 [id number] Univers 00:00:00 00:00:00 Amandeep LORA 350.1.13.10 [place] [id number] Pr dical NAL 059 [facility] 2022-09-13 2022-09-13 Outpatient R YAMILKA [facility] [id number] Univers 08:52:35 23:59:00 SENDIL ity [facility] 2022-09-13 2022-09-13 Outpatient R YAMILKA [facility] [id number] Univers 10:00:00 10:00:00 SENDIL ity [facility] 2022-09-13 2022-09-13 Prototype Sewer 2, Adc Lab [facility] 1.2.840.114 [id number] Univers 09:15:00 09:15:00 Visit Amandeep Prather 350.1.13. 10 it[place] [id number] Pr dical NAL 353 [facility] 2022-09-09 2022-09-09 [facility] 1.2.464.982 [id number] Univers 00:00:00 00:00:00 Sendrod LORA 350.1.13.10 it[place] [id number] Pr dichi NAL [address] [place] [address] 2022-03-11 2022-03-11 [facility] [id number] Univers 15:30:00 16:01:53 SENDIL ity [facility] 2022-03-11 2022-03-11 Office [facility] 1.2.840.114 [id number] Univers 15:30:00 16:01:53 Visit Sendil Austin LORA 350.1.13.10 it[place] [id number] [address] 2021-12-19 2021-12-19 Outpatient R [facility] [id number] Univers 15:40:00 15:40:00 LUANN olson o f [facility] 2021-12-18 2021-12-18 Letter DEXTER Cruz 1.2.840.114 [id number] Univers 00:00:00 00:00:00 (Out) Aleks M KAMI 350.1.13.10 i [facility] 4.2.7.2.686 [place] [id number] [address] 2021-12-05 2021-12-05 Out[facility] [id number] Univers 13:30:00 14:18:51 SENDIL ity [facility] 2021-12-05 2021-12-05 [address] [facility] 1.2.840.114 [id number] Univers 13:30:00 14:18:51 Visit Sendrod LORA 350.1.13.10 it[place] [id number] [address] 2021-12-05 2021-12-05 Orders Doctor RENTERIA 1.2.840.114 [id number] Univers 00:00:00 00:00:00 Only Unassigned, KAMI 350.1.13.10 ity of [facility] 4.2.7.2.686 [place] [id number] [facility] 00[address] Branch 2021-11-28 2021-11-29 [facility] Danny Huerta [facility] AGNES 1.2. 840.114 [id number] Univers 11:55:00 12:48:00 Encounter Akash Peck 350.1.13.10 ity [facility] 4.2.7.2.686 [place] [phone] [facility] 090 Branch 2021-11-28 2021-11-29 Outpatient R MARTHA [facility] [id number] Univers 07:08:26 12:48:00 [facility] 2021-11-28 2021-11-28 [facility] CHRIST HuertaNIE 1.2.840.114 [id number] Univers 06:35:57 06:59:00 Encounter Danny MCCLURE 350.1.13.10 ity [facility] 4.2.7.2.686 [place] [id number] [facility] 051 Branch 2021-11-20 2021-11-20 Telephone AGNES Huerta 1.2.414.734 [id number] Univers 00:00:00 00:00:00 [address] KAMI [address]13[address] [facility] 4.2.7.2.686 [place] [id number] [facility] 247 [place] 2021-11-05 2021-11-05 Telephone LorrainedcAGNES nieves 1.2.178.960 [id number] Univers 00:00:00 00:00:00 Danny KAMI 350.1.13.10 it y [facility] 4.2.7.2.686 [place] [id number] [facility] 247 Branch 2021-10-31 2021-11-02 Outpatient X JAMI MARTINES [facility] 1 [id number] Univers 18:00:00 19:52:00 JAMI MARTINES [facility] 2021-10-31 2021-11-02 Emergency Earl Moses 1.2.840.1 14 [id number] Univers 18:00:00 19:52:00 Jami Martines 350.1.13.10 ity [facility] 4.2.7.2.686 [place] [id number] [facility] 089 Branch 2021-10-31 2021-11-02 Outpatient X JAMI MARTINES [facility] 1 [id number] Univers 18:00:00 19:52:00 [facility] 2021-11-02 2021-11-02 Telephone Deanna [facility] 1.2.890.349 [id number] Univers 00:00:00 00:00:00 [facility] 350.1.13.10 it y of [place] 4.2.7.2.686 [facility] GILBERT [id number] [place] [address] Branch OFFICE BUILDING Results Test Description Test Time Test Comments Results Result Comments Source TROPONIN I 2023-03-12 19:49:35 Test Item Value Reference Range Interpretation Comme nts TROPONIN I (test code = 9070620822) 0.004 ng/mL <=0.034 NATHANAEL (test code = NATHANAEL) Reference (Normal) Range (defined by the 99th percentile reference limit): <= 0.034 ng/mL Note: Cardiac troponin begins to rise 3-4 hours after the onset of ischemia. Repeat in 4-6 hours if the sample was drawn within 3-4 hours of the onset of the symptom and found normal. Diagnosis of myocardial injury is made with acute changes in cTn concentrations with at least one serial sample above the 99th percentile upper reference limit (URL), taken together with the patient's clinical presentation. Biotin has been reported to cause a negative bias, interpret results relative to patient's use of biotin. Lab Interpretation (test code = Normal 26230-1) [facility] [id number] 17:10:39 Test Item Value Reference Range Interpretation Comments TROPONIN I (test code = 0.003 ng/mL <=0.034 1547993655) NATHANAEL (test code = NATHANAEL) Reference (Normal) Range (defined by the 99th percentile reference limit): <= 0.034 ng/mL Note: Cardiac troponin begins to rise 3-4 hours after the onset of ischemia. Repeat in 4-6 hours if the sample was drawn within 3-4 hours of the onset of the symptom and found normal. Diagnosis of myocardial injury is made with acute changes in cTn concentrations with at least one serial sample above the 99th percentile upper reference limit (URL), taken together with the patient's clinical presentation. Biotin has been reported to cause a negative bias, interpret results relative to patient's use of biotin. Lab Interpretation Normal (test code = 16584-1) [facility] [id number] 17:07:19 Test Item Value Reference Range Interpretation Comments NT-proBNP (test code = 29 pg/mL <=125 7601754061) NATHANAEL (test code = NATHANAEL) Biotin has been reported to cause a negative bias, interpret results relative to patient's use of biotin. Lab Interpretation (test Normal code = 03186-6) [facility]OLIC PANEL (26782)2023-03-12 16:59:59 Test Item Value Reference Range Interpretation Comments NA (test code = 138 mmol/L 135-145 0540825911) K (test code = 4.0 mmol/L 3.5-5.0 7348701259) CL (test code = 102 mmol/L 98-108 5972546703) CO2 TOTAL (test code 27 mmol/L 23-31 = 4391628621) AGAP (test code = 9 2-16 5859870913) BUN (test code = 12 mg/dL 7-23 0921474947) GLUCOSE (test code = 98 mg/dL 70-110 4162720684) CREATININE (test code 0.74 mg/dL 0.60-1.25 = 6493968259) TOTAL BILI (test code 0.6 mg/dL 0.1-1.1 = 0222799852) CALCIUM (test code = 9.4 mg/dL 8.6-10.6 3271240592) T PROTEIN (test code 7.2 g/dL 6.3-8.2 = 7431636989) ALBUMIN (test code = 4.4 g/dL 3.5-5.0 4593413037) ALK PHOS (test code = 89 U/L 34-122 4893973573) ALTv (test code = 35 U/L 5-50 1742-6) AST(SGOT) (test code 26 U/L 13-40 = 9206007606) eGFR (test code = 109.4 mL/min/1.73m2 3669972269) NATHANAEL (test code = NATHANAEL) Association of Glomerular Filtration Rate (GFR) and Staging of Kidney Disease* + + +- +| GFR (mL/min/1.73 m2) ?| With Kidney Damage ?| ?Without Kidney Damage+ ------+ ----+ ------+| ?>90 ?| ?Stage one ?| ? Normal ?+ -+ + -+| ?60-89 ?| ?Stage two ?| ? Decreased GFR ? + + +- +| ?30-59 ?| ?Stage three ?| ? Stage three ? + + +- +| ?15-29 ?| ?Stage four ? | ? Stage four ?+ -+ + -+| ?<15 (or dialysis) ? ?| ?Stage five ? | ? Stage five ?+ -+ + -+ *Each stage assumes the associated GFR level has been in effect for at least three months. ?Stages 1 to 5, with or without kidney disease, indicate chronic kidney disease. Notes: Determination of stages one and two (with eGFR >59mL/min/1.73 m2) requires estimation of kidney damage for at least three months as defined by structural or functional abnormalities of the kidney, manifested by either:Pathological abnormalities or Markers of kidney damage (including abnormalities in the composition of the blood or urine or abnormalities in imaging tests). [facility] 16:59:17 Test Item Value Reference Range Interpretation Comments LIPASE (test code = 3608022711) 283 U/L 0-220 H Lab Interpretation (test code = Abnormal 58492-6) [facility] / [id number] 16:57:36 Test Item Value Reference Range Interpretation Comments PROTIME PATIENT (test 12.4 See_Comment [Auto mated message] code = 5964-2) The system [employer] generated this result transmitted ref erence range: 12.0 - 1 4.7 Seconds. The re ference range was not u sed to interpret this result as normal/abnor mal. INR (test code = 6301-6) 1.0 Nor mal INR <1.1; Warfarin Therap eutic range 2.0 to 3. 0 or 2.5 to 3.5, dep ending upon the indica tions. Lab Interpretation (test Normal code = 77488-3) [facility] WITH [id number] 16:47:17 Test Item Value Reference Range Interpretation Comments WBC (test code = 9.29 See_Comment [Automated 6690-2) message] The sy stem which generated this result transmitted reference range : 4.20 - 10.70 10*3/?L. The reference range was not used to interpret this result as normal/abnormal . RBC (test code = 4.81 See_Comment [Automated 789-8) message] The sy stem which generated this result transmitted reference range : 4.26 - 5.52 10*6/?L. The reference range was not used to interpret this result as normal/abnormal . HGB (test code = 14.8 g/dL 12.2-16.4 718-7) HCT (test code = 42.5 % 38.4-49.3 4544-3) MCV (test code = 88.4 fL 81.7-95.6 787-2) MCH (test code = 30.8 pg 26.1-32.7 785-6) MCHC (test code = 34.8 g/dL 31.2-35.0 786-4) RDW-SD (test code = 40.2 fL 38.5-51.6 54017-8) RDW-CV (test code = 12.3 % 12.1-15.4 788-0) PLT (test code = 288 See_Comment [Automated 777-3) message] The sy stem which generated this result transmitted reference range : 150 - 328 10*3/ ?L. The reference r andi was not used to interpret this result as normal/abnormal . MPV (test code = 9.6 fL 9.8-13.0 L 65513-7) NRBC/100 WBC (test 0.0 See_Comment [Automat ed code = 9415535761) message] The system which generated this result transmitted reference range : 0.0 - 10.0 /100 WBCs. The refer ence range was not u sed to interpret th is result as normal/abnormal . NRBC x10^3 (test code See_Comment [Auto mated = 8920908213) message] The s ystem which generated this result transmitted reference range : 10*3/?L. The reference range was not used to interpret this result as normal/abnormal . GRAN MAT (NEUT) % 68.9 % (test code = 770-8) IMM GRAN % (test code 1.00 % = 2240160960) LYMPH % (test code = 19.9 % 736-9) MONO % (test code = 7.9 % 5905-5) EOS % (test code = 1.7 % 713-8) BASO % (test code = 0.6 % 706-2) GRAN MAT x10^3(ANC) 6.40 10*3/uL 1.99-6.95 (test code = 1152539027) IMM GRAN x10^3 (test 0.09 10*3/uL 0.00-0.06 H code = 0474072661) LYMPH x10^3 (test code 1.85 10*3/uL 1.09-3.23 = 731-0) MONO x10^3 (test code 0.73 10*3/uL 0.36-1.02 = 742-7) EOS x10^3 (test code = 0.16 10*3/uL 0.06-0.53 711-2) BASO x10^3 (test code 0.06 10*3/uL 0.01-0.09 = 704-7) Lab Interpretation Abnormal (test code = 11314-3) [facility] HospitalThyroid Stimulating Hormone (TSH)2023-01-06 01:08:10 Test Item Value Reference Range Interpretation Comments TSH (test code = 1.12 See_Comment Biotin has been 9465068330) reported to cau se a negative bias, interpret resul ts relative to pat ient's use of biotin. [Automated mess age] The system [employer] h generated this result transmitted ref erence range: 0.45 - 4 .70 mIU/L. The refe rence range was not u sed to interpret this result as normal/abnor mal. Lab Interpretation (test Normal code = 12341-0) [facility] (Total Cholesterol, Triglycerides, HDL)2023-01-05 23:32:58 Test Item Value Reference Range Interpretation Comments CHOL (test code = 6368148079) 183 mg/dL 120-200 HDL (test code = 7987486533) 41 mg/dL >=40 HDLC RATIO (test code = 8866516135) 4.5 <=5.0 TRIG (test code = 7184888209) 216 mg/dL 30-170 H LDL CHOL (test code = 54802-3) 99 mg/dL <=160 VLDL (test code = 3261063617) 43 mg/dL 5-60 Lab Interpretation (test code = Abnormal 56822-5) [facility] [id number] 18:32:34 Test Item Value Reference Range Interpretation Comments NT-proBNP (test code = <=125 7140071591) NATHANAEL (test code = NATHANAEL) Biotin has been reported to cause a negative bias, interpret results relative to patient's use of biotin. Lab Interpretation (test Normal code = 10303-1) [facility] [id number] 18:05:47 Test Item Value Reference Range Interpretation Comments TROPONIN I (test code = 0.003 ng/mL <=0.034 4408771299) NATHANAEL (test code = NATHANAEL) Reference (Normal) Range (defined by the 99th percentile reference limit): <= 0.034 ng/mL Note: Cardiac troponin begins to rise 3-4 hours after the onset of ischemia. Repeat in 4-6 hours if the sample was drawn within 3-4 hours of the onset of the symptom and found normal. Diagnosis of myocardial injury is made with acute changes in cTn concentrations with at least one serial sample above the 99th percentile upper reference limit (URL), taken together with the patient's clinical presentation. Biotin has been reported to cause a negative bias, interpret results relative to patient's use of biotin. Lab Interpretation Normal (test code = 91594-4) [facility]2023-02-05 17:54:06 Test Item Value Reference Range Interpretation Comments MAGNESIUM (test code = 8616407546) 2.2 mg/dL 1.7-2.4 Lab Interpretation (test code = Normal 52682-3) [facility] METABOLIC PANEL (13912)2023-01-05 17:53:46 Test Item Value Reference Range Interpretation Comments NA (test code = 137 mmol/L 135-145 2397089665) K (test code = 4.4 mmol/L 3.5-5.0 5547826484) CL (test code = 101 mmol/L 98-108 1362943588) CO2 TOTAL (test code = 26 mmol/L 23-31 0391298845) AGAP (test code = 10 2-16 9980145170) BUN (test code = 13 mg/dL 7-23 4551860028) GLUCOSE (test code = 105 mg/dL 70-110 5348960187) CREATININE (test code = 0.87 mg/dL 0.60-1.25 2861745073) TOTAL BILI (test code = 1.1 mg/dL 0.1-1.3 [id number]) CALCIUM (test code = 9.9 mg/dL 8.6-10.6 7835968250) T PROTEIN (test code = 8.8 g/dL 6.3-8.2 H 6298972151) ALBUMIN (test code = 5.2 g/dL 3.5-5.0 H 7572697951) ALK PHOS (test code = 147 U/L 34-122 H 3469279063) ALTv (test code = 52 U/L 5-50 H 1742-6) AST(SGOT) (test code = 46 U/L 13-40 H 5841306090) eGFR (test code = 90.8 mL/min/1.73m2 1989377751) NATHANAEL (test code = NATHANAEL) Association of Glomerular Filtration Rate (GFR) and Staging of Kidney Disease* + --+ --+ ------+| GFR (mL/min/1.73 m2) ?| With Kidney Damage ?| ?Without Kidney Damage+ --------+ --------+ +| ?>90 ?| ?Stage one ?| ? Normal ?+ ---+ ---+ -------+| ?60-89 ?| ?Stage two ?| ? Decreased GFR ? + --+ --+ ------+| ?30-59 ?| ?Stage three ?| ? Stage three ? + --+ --+ ------+| ?15-29 ?| ?Stage four ? | ? Stage four ?+ ---+ ---+ -------+| ?<15 (or dialysis) ? ?| ?Stage five ? | ? Stage five ?+ ---+ ---+ -------+ *Each stage assumes the associated GFR level has been in effect for at least three months. ?Stages 1 to 5, with or without kidney disease, indicate chronic kidney disease. Notes: Determination of stages one and two (with eGFR >59mL/min/1.73 m2) requires estimation of kidney damage for at least three months as defined by structural or functional abnormalities of the kidney, manifested by either:Pathological abnormalities or Markers of kidney damage (including abnormalities in the composition of the blood or urine or abnormalities in imaging tests). Lab Interpretation Abnormal (test code = 21536-0) [facility]26 Test Item Value Reference Range Interpretation Comments LIPASE (test code = 5712391519) 165 U/L 0-220 Lab Interpretation (test code = Normal 39866-9) [facility] [id number] 17:44:06 Test Item Value Reference Range Interpretation Comments WBC (test code = 9.64 See_Comment [Automated 3490-2) message] The sy stem which generated this result transmitted reference range : 4.20 - 10.70 10*3/?L. The reference range was not used to interpret this result as normal/abnormal . RBC (test code = 5.76 See_Comment H [Automated 369-8) message] The sy stem which generated this result transmitted reference range : 4.26 - 5.52 10*6/?L. The reference range was not used to interpret this result as normal/abnormal . HGB (test code = 17.3 g/dL 12.2-16.4 H 718-7) HCT (test code = 51.0 % 38.4-49.3 H 4544-3) MCV (test code = 88.5 fL 81.7-95.6 787-2) MCH (test code = 30.0 pg 26.1-32.7 785-6) MCHC (test code = 33.9 g/dL 31.2-35.0 786-4) RDW-SD (test code = 40.4 fL 38.5-51.6 75338-3) RDW-CV (test code = 12.4 % 12.1-15.4 788-0) PLT (test code = 333 See_Comment H [Automated 777-3) message] The sy stem which generated this result transmitted reference range : 150 - 328 10*3/ ?L. The reference r andi was not used to interpret this result as normal/abnormal . MPV (test code = 9.0 fL 9.8-13.0 L 99809-8) NRBC/100 WBC (test 0.0 See_Comment [Automat ed code = 5690654014) message] The system which generated this result transmitted reference range : 0.0 - 10.0 /100 WBCs. The refer ence range was not u sed to interpret th is result as normal/abnormal . NRBC x10^3 (test code See_Comment [Auto mated = [id number]) message] The s ystem which generated this result transmitted reference range : 10*3/?L. The reference range was not used to interpret this result as normal/abnormal . GRAN MAT (NEUT) % 60.3 % (test code = 770-8) IMM GRAN % (test code 0.70 % = 3708606206) LYMPH % (test code = 28.0 % 736-9) MONO % (test code = 7.4 % 5905-5) EOS % (test code = 3.0 % 713-8) BASO % (test code = 0.6 % 706-2) GRAN MAT x10^3(ANC) 5.81 10*3/uL 1.99-6.95 (test code = 7841013359) IMM GRAN x10^3 (test 0.07 10*3/uL 0.00-0.06 H code = 4251137049) LYMPH x10^3 (test code 2.70 10*3/uL 1.09-3.23 = 731-0) MONO x10^3 (test code 0.71 10*3/uL 0.36-1.02 = 742-7) EOS x10^3 (test code = 0.29 10*3/uL 0.06-0.53 711-2) BASO x10^3 (test code 0.06 10*3/uL 0.01-0.09 = 704-7) Lab Interpretation Abnormal (test code = 07448-5) [facility]"
[2023-05-28] MEDS ORDERED: ACETAMINOPHEN 325 MG TABLET ONE (20:31)
[2023-05-28] MEDS ORDERED: KETOROLAC 30 MG/ML INJ ONE (20:32)
[2023-05-28] MEDS ORDERED: HYDROCODONE/APAP 5/325 MG TAB ONE (20:32)
--- NOTE | 2023-05-28 20:40 | RAD REPORT ---
EXAM DESCRIPTION: RAD - Knee Right 3 View - 05/28/2023 8:18 pm CLINICAL HISTORY: PAIN COMPARISON: <Comparisons> FINDINGS: No bone or joint abnormality seen.
--- NOTE | 2023-05-28 20:56 | ER ---
Nurse's Notes [facility] Name: Nimesh Silveira Jr Age: 57 yrs Sex: Male : 1965 Arrival Date: 05/28/2023 Time: 18:39 Bed 12 Private MD: Haris Cruz Diagnosis: Pain in right knee Presentation: 05/28 19:00 Chief complaint: Patient states: Sciatic pain X 3 weeks. Falconer pain travel from right ld1 upper leg to right knee - now pain is constant in right knee. Coronavirus screen: At this time, the client does not indicate any symptoms associated with coronavirus-19. Ebola Screen: No symptoms or risks identified at this time. Initial Sepsis Screen: Does the patient meet any 2 criteria? No. Patient's initial sepsis screen is negative. Does the patient have a suspected source of infection? No. Patient's initial sepsis screen is negative. Risk Assessment: Do you want to hurt yourself or someone else? Patient reports no desire to harm self or others. Onset of symptoms was May 28, 2023. 19:00 Method Of Arrival: Ambulatory ld1 19:00 Acuity: FRANCIA 4 ld1 Triage Assessment: 19:02 General: Appears in no apparent distress. comfortable, Behavior is calm, cooperative, ld1 appropriate for age. Pain: Complains of pain in right knee Pain does not radiate. Pain currently is 10 out of 10 on a pain scale. Quality of pain is described as sharp, shooting, throbbing. EENT: No signs and/or symptoms were reported regarding the EENT system. Neuro: Level of Consciousness is awake, alert, obeys commands, Oriented to person, place, time, situation. Cardiovascular: Capillary refill < 3 seconds Patient's skin is warm and dry. Respiratory: Airway is patent Respiratory effort is even, unlabored. GI: Abdomen is flat, non-distended. : No signs and/or symptoms were reported regarding the genitourinary system. Derm: No signs and/or symptoms reported regarding the dermatologic system. Musculoskeletal: No signs and/or symptoms reported regarding the musculoskeletal system. Historical: - Allergies: 19:02 No Known Allergies; ld1 - PMHx: 19:02 acid reflux; Myocardial infarction; ld1 - PSHx: 19:02 heart stent; ld1 - Immunization history:: Adult Immunizations up to date, Client reports receiving the 2nd dose of the Covid vaccine. - Social history:: Smoking status: Patient reports the use of cigarette tobacco products, smokes one-half pack cigarettes per day, Patient/guardian denies using alcohol. Screenin:[facility] ED Fall Risk Assessment (Adult) History of falling in the last 3 months, mb9 including since admission No falls in past 3 months (0 pts) Confusion or Disorientation No (0 pts) Intoxicated or Sedated No (0 pts) Impaired Gait No (0 pts) Mobility Assist Device Used No (0 pt) Altered Elimination No (0 pt) Score/Fall Risk Level 0 - 2 = Low Risk Oriented to surroundings, Maintained a safe environment, Educated pt \T\ family on fall prevention, incl call for assistance when getting out of bed. Abuse screen: Denies threats or abuse. Nutritional screening: No deficits noted. Tuberculosis screening: No symptoms or risk factors identified. Assessment: 19:33 Reassessment: No changes from previously documented assessment. Patient and/or family mb9 updated on plan of care and expected duration. Pain level reassessed. Patient is alert, oriented x 3, equal unlabored respirations, skin warm/dry/pink. 21:00 Reassessment: Patient appears in no apparent distress at this time. Patient states kl feeling better. Patient states symptoms have improved. pt ambulatory gait steady. Vital Signs: 19:00 BP 153 / 94; Pulse 88; Resp 18; Temp 98.2(TE); Pulse Ox 97% on R/A; Weight 85.73 kg; ld1 Height 5 ft. 9 in. ; Pain 10/10; 21:00 Pulse 72; Resp 16; Pulse Ox 99% ; kl 19:00 Body Mass Index 27.91 (85.73 kg, 175.26 cm) ld1 19:00 Pain Scale: Adult ld1 ED Course: 18:42 Patient arrived in ED. im 18:42 Haris Cruz DO is Private Physician. im 19:02 Triage completed. ld1 19:02 Arm band placed on right wrist. ld1 19:07 Yong Pope PA is PHCP. cp 19:07 Abdulaziz Lucio MD is Attending Physician. cp 19:29 Terra Morgan RN is Primary Nurse. mb9 19:33 Placed in gown. Bed in low position. Call light in reach. Side rails up X 1. Client mb9 placed on continuous cardiac and pulse oximetry monitoring. NIBP monitoring applied. 20:20 XRAY Knee RIGHT 3 view In Process Unspecified. EDMS 20:55 Elton Chavez MD is Referral Physician. cp 21:00 No provider procedures requiring assistance completed. Patient did not have IV access kl during this emergency room visit. Administered Medications: 20:27 Drug: Acetaminophen PO 650 mg Route: PO; mb9 21:00 Follow up: Response: No adverse reaction; Marked relief of symptoms kl 20:27 Drug: HYDROcodone-acetaminophen PO 5 mg-325 mg 1 tabs Route: PO; mb9 20:59 Follow up: Response: No adverse reaction; Marked relief of symptoms kl 20:28 Drug: Ketorolac IM 30 mg Route: IM; Site: left deltoid; mb9 21:00 Follow up: Response: No adverse reaction; Marked relief of symptoms kl Medication: 19:33 VIS not applicable for this client. mb9 Outcome: 20:55 Discharge ordered by . cp 21:01 Discharged to home ambulatory. kl 21:01 Condition: stable 21:01 Discharge instructions given to patient, Instructed on discharge instructions, follow up and referral plans. medication usage, Demonstrated understanding of instructions, follow-up care, medications, Prescriptions given X 1. 21:01 Patient left the ED. Signatures: Dispatcher [employer] EDMS Alma Rodriguez RN RN Yong Mackay PA PA cp Sims, Lauren RN RN ld1 Terra Morgan RN RN mb9 Chata Dowling
--- NOTE | 2023-05-28 20:56 | EDPHYS ---
Physician Documentation [facility] Name: Nimesh Silveira Jr Age: 57 yrs Sex: Male : 1965 Arrival Date: 05/28/2023 Time: 18:39 Bed 12 Private MD: [facility] ED Physician Abdulaziz Lucio HPI: 05/28 19:10 This 57 yrs old Male presents to ER via Ambulatory with complaints of Knee cp Pain. 19:10 The patient presents with pain, that is acute. The complaints affect the right knee. cp Context: resulted from an unknown cause, the patient can fully bear weight, the patient is able to ambulate, with mild difficulty, Problem is a result from a previous injury: No. Onset: The symptoms/episode began/occurred 3 week(s) ago, started after episode of right low back pain that radiated to right leg. no back pain now, but right knee pain continues. has scheduled appt in May with orthoDR Chavez. Historical: - Allergies: 19:02 No Known Allergies; ld1 - PMHx: 19:02 acid reflux; Myocardial infarction; ld1 - PSHx: 19:02 heart stent; ld1 - Immunization history:: Adult Immunizations up to date, Client reports receiving the 2nd dose of the Covid vaccine. - Social history:: Smoking status: Patient reports the use of cigarette tobacco products, smokes one-half pack cigarettes per day, Patient/guardian denies using alcohol. ROS: 19:15 MS/extremity: Positive for pain, of the right knee. cp 19:15 Constitutional: Negative for body aches, chills, fever, poor PO intake. cp 19:15 Eyes: Negative for injury, pain, redness, and discharge. cp 19:15 Neck: Negative for pain with movement, pain at rest, stiffness. 19:15 Cardiovascular: Negative for chest pain, palpitations. 19:15 Respiratory: Negative for cough, shortness of breath, wheezing. 19:15 Abdomen/GI: Negative for abdominal pain, nausea, vomiting, and diarrhea. 19:15 Back: Negative for pain at rest, pain with movement. 19:15 Neuro: Negative for altered mental status, dizziness, headache, numbness, weakness. 19:15 All other systems are negative. Exam: 19:20 Constitutional: The patient appears in no acute distress, alert, awake, cp non-diaphoretic, non-toxic, well developed, well nourished, uncomfortable. 19:20 Head/Face: Normocephalic, atraumatic. cp 19:20 Neck: ROM/movement: is normal, is supple, without pain, no range of motions limitations. 19:20 Chest/axilla: Inspection: normal. 19:20 Cardiovascular: Rate: normal. 19:20 Respiratory: the patient does not display signs of respiratory distress, Respirations: normal, no use of accessory muscles, no retractions, labored breathing, is not present. 19:20 Abdomen/GI: Exam negative for discomfort, distension, guarding, Inspection: abdomen appears normal. 19:20 Back: pain, is absent, ROM is normal. 19:20 Musculoskeletal/extremity: Extremities: noted in the right knee: mild swelling noted, pain and tenderness along medial joint line and medial side of knee, ROM: limited passive range of motion due to pain, in the right knee, Perfusion: the extremity is normally perfused throughout. 19:20 Skin: cellulitis, is not appreciated, no rash present. Vital Signs: 19:00 BP 153 / 94; Pulse 88; Resp 18; Temp 98.2(TE); Pulse Ox 97% on R/A; Weight 85.73 kg; ld1 Height 5 ft. 9 in. ; Pain 10/10; 21:00 Pulse 72; Resp 16; Pulse Ox 99% ; kl 19:00 Body Mass Index 27.91 (85.73 kg, 175.26 cm) ld1 19:00 Pain Scale: Adult ld1 MDM: 19:06 Patient medically screened. cp 20:55 Data reviewed: vital signs, nurses notes, radiologic studies, plain films. cp 20:55 I considered the following discharge prescriptions or medication management in the emergency department Medications were administered in the Emergency Department. See MAR. Counseling: I had a detailed discussion with the patient and/or guardian regarding: the historical points, exam findings, and any diagnostic results supporting the discharge/admit diagnosis, the need for outpatient follow up, for definitive care, a orthopedic surgeon, to return to the emergency department if symptoms worsen or persist or if there are any questions or concerns that arise at home. Response to treatment: the patient's symptoms have markedly improved after treatment, and as a result, I will discharge patient. 05/28 19:07 Order name: XRAY Knee RIGHT 3 view; Complete Time: 20:48 cp 05/28 20:48 Interpretation: Report reviewed. cp Administered Medications: 20:27 Drug: Acetaminophen PO 650 mg Route: PO; mb9 21:00 Follow up: Response: No adverse reaction; Marked relief of symptoms kl 20:27 Drug: HYDROcodone-acetaminophen PO 5 mg-325 mg 1 tabs Route: PO; mb9 20:59 Follow up: Response: No adverse reaction; Marked relief of symptoms kl 20:28 Drug: Ketorolac IM 30 mg Route: IM; Site: left deltoid; mb9 21:00 Follow up: Response: No adverse reaction; Marked relief of symptoms kl Disposition Summary: 05/28/23 20:55 Discharge Ordered Location: Home cp Problem: an ongoing problem cp Symptoms: have improved cp Condition: Stable cp Diagnosis - Pain in right knee cp Followup: cp - With: Elton Chavez MD - When: 1 week - Reason: Recheck today's complaints Discharge Instructions: - Discharge Summary Sheet cp - Elastic Bandage and RICE Therapy cp - How to Use a Knee Brace cp - Acute Knee Pain, Adult cp Forms: - Medication Reconciliation Form cp - Thank You Letter cp - Antibiotic Education cp - Prescription Opioid Use cp - [email or web address] cp Prescriptions: - Celebrex 200 mg Oral Capsule - take 1 capsule by ORAL route once daily As needed take with food; 20 capsule; cp Refills: 0, Product Selection Permitted Signatures: Dispatcher [employer] EDMS Yong Pope PA PA cp Lora Lawrence RN RN ld1 Terra Morgan RN RN mb9 Alma Rodriguez RN kl Corrections: (The following items were deleted from the chart) 05/29 06:21 06:20 MS/extremity: Positive for pain, of the right knee, cp cp 05/28 19:10 Onset: The symptoms/episode began/occurred 3 week(s) ago, started after cp episode of right low back pain that radiated to right leg. no back pain now, but right knee pain continues. has scheduled appt in May with ortho, cp
[2023-05-28 21:36] VITALS: BP 153/94; TEMP 98.2
[2023-05-28 21:37] VITALS: O2SAT 99
== END 2023-05-28 21:01 | disposition home or self-care (01) ==
LOC: ER 18:39
DX: M25.561 Pain in right knee (principal); F17.210 Nicotine dependence, cigarettes, uncomplicated; Z95.818 Presence of other cardiac implants and grafts
CPT/HCPCS: 96372; 99284